=== PATIENT | male | born 1955 | race Two or more races ===

== ENCOUNTER 2016-11-27 10:11 | Inpatient (IN) | payer OTHER ==
[~2016-11-27] VITALS: Ht 167.6 cm; Wt 79.8 kg
[~2016-11-27 10:11] MED LIST: ACET325T53 PO; AMIN887L PO; ASCO500T9 PO; ATOR10TA PO; Bisacodyl RC; Blood Sugar Diagnostic IN; CLOP75TA2 PO; Cadexomer Iodine TP; DEXT50DI8 IV; DOCU-25 PO; GABA300C PO; GLIP5TAB13 PO; HYDR-3326 PO; INSU100V3 SQ; INSU100V7 SQ; LACT1CAP72 PO; LEVO500T15 PO; METO25TA20 PO; MULT-24 PO; SULF1TAB48 PO
--- NOTE | 2016-11-27 10:21 | NUR ---
AAOX3, SENT HERE BY DR MERINO FOR EVAL AND TREATMENT OF RIGHT TOE CELLULITIS. RESP IS EVEN AND UNLABORED WITH NAD NOTED. SKIN IS WARM AND DRY. AWAITING MD FOR EVAL.
[2016-11-27 10:51] LABS: BASOPHILS % (AUTO) 0.6 % (0.0-2.0); EOSINOPHILS # (AUTO) 0.2 /CMM (0.0-0.7); HEMATOCRIT 36 % (39-51); HEMOGLOBIN 11.7 g/dL (13.5-17.5); LYMPHOCYTES # (AUTO) 1.1 /CMM (0.8-4.8); LYMPHOCYTES % (AUTO) 14.6 % (20.0-44.0); MEAN CORPUSCULAR HEMOGLOBIN 30 PG (26.0-33.0); MEAN CORPUSCULAR HGB CONC 33 g/dl (31.0-36.0); MEAN CORPUSCULAR VOLUME 92 fL (80-96); MONOCYTES # (AUTO) 0.6 /CMM (0.1-1.30); NEUTROPHILS # (AUTO) 5.7 /CMM (1.8-8.9); NEUTROPHILS % (AUTO) 74.8 % (43.0-81.0); PLATELET COUNT (AUTO) 254 /CMM (150-450); WHITE BLOOD COUNT (AUTO) 7.6 K/uL (4.3-11.0)
[2016-11-27 11:04] LABS: INR 0.88 (0.87-1.13)
[2016-11-27 11:13] LABS: CALCIUM, SERUM 8.8 mg/dL (8.5-10.1); CREATININE 1.7 mg/dL (0.6-1.3); POTASSIUM 5.7 mmol/L (3.5-5.1)
--- NOTE | 2016-11-27 11:26 | NUR ---
CALLED NURSING SUP. FOR MS BED
--- NOTE | 2016-11-27 13:00 | NUR ---
MS 207-1
--- NOTE | 2016-11-27 13:19 | NUR ---
REPORT GIVEN TO DOE TROTTER FOR CHIO MS 207-1
[2016-11-27 13:45] VITALS: BP 148/74
--- NOTE | 2016-11-27 13:45 | NUR ---
MS RN NOTE ADMITTED THIS PT, DIABETIC FOOT ULCER BY DR. PEARL, AAOX 4, ON RA, DENIES ANY SOB, CHEST PAIN, L AC 20G IV ACCESS, FLUSHES WELL SITE CLEAR. SEE NURSING ASSESSMENT FOR SKIN ISSUES, PHOTOS OF SKIN ISSUES TAKEN AND PLACED IN CHART. [facility] DIET. UNIT ORIENTATION DONE AND USE OF CALL LIGHT, SAFETY MEASURES IN PLACE. WILL CONT TO MONITOR.
[2016-11-27] MEDS ORDERED: HYDROCODONE/APAP 5/325MG 1 EACH TABLET PO PRN (14:00)
[2016-11-27] MEDS ORDERED: MAG HYDROX/AL HYDROX/SIMETH 30 ML UDC PO PRN (14:00)
[2016-11-27] MEDS ORDERED: VANCOMYCIN 1 GM in IV D5W 250 ML IV SCH (14:00)
[2016-11-27] MEDS ORDERED: ONDANSETRON HCL/PF 4 MG/2 ML VIAL IVP PRN (14:00)
[2016-11-27] MEDS ORDERED: ACETAMINOPHEN 325 MG TABLET PO PRN (14:00)
[2016-11-27] MEDS ORDERED: Z GUARD REMEDY 2 OZ OINT TP PRN (14:00)
[2016-11-27] MEDS ORDERED: FEE PK DOSING 1 MIN EA MC ONE (14:03)
[2016-11-27] MEDS ORDERED: ACET325T53 PO (14:37)
[2016-11-27] MEDS ORDERED: ALBU2.5V38 NEB (14:37)
[2016-11-27] MEDS ORDERED: FURO40TA5 PO (14:49)
[2016-11-27] MEDS ORDERED: METO50TA3 PO (14:49)
[2016-11-27] MEDS ORDERED: TRAM50TA2 PO (14:49)
[2016-11-27] MEDS ORDERED: GLIP10TA11 PO (14:49)
[2016-11-27] MEDS ORDERED: ASPI81TA2 PO (14:49)
[2016-11-27] MEDS ORDERED: DOCU-170 PO (14:49)
[2016-11-27] MEDS ORDERED: CLON0.1T PO (14:49)
[2016-11-27] MEDS ORDERED: LISI40TA4 PO (14:49)
[2016-11-27] MEDS ORDERED: NEOM28.43 TP (14:55)
[2016-11-27] MEDS ORDERED: SECONDARY IV SET 1 EA INFUS.SET MC ONE ×2 (15:29→17:10)
[2016-11-27] MEDS ORDERED: DEXTROSE 50%-WATER 50 ML DISP.SYRIN IV PRN (15:30)
[2016-11-27] MEDS ORDERED: IV SET PRIMARY PUMP SET 1 EA INFUS.SET MC ONE ×2 (15:30→15:37)
[2016-11-27] MEDS ORDERED: ALBUTEROL FS 2.5 MG/3 ML VIAL.NEB NEB PRN (15:30)
[2016-11-27] MEDS: VANCOMYCIN 0.75 GM in IV D5W 250 ML IV SCH (15:37)
--- NOTE | 2016-11-27 15:37 | NUR ---
MS RN NOTES STARTED VANCO IV.
[2016-11-27] MEDS: IV NS 0.9% 1,000 ML IV PRN (15:39)
[2016-11-27 16:00] VITALS: BP 143/70
[2016-11-27] MEDS: LISINOPRIL (20MG) 20 MG TABLET PO SCH (16:24)
[2016-11-27] MEDS: CLONIDINE HCL 0.1 MG TABLET PO SCH (16:24)
[2016-11-27] MEDS: METOPROLOL TARTRATE 50 MG TABLET PO SCH (16:25)
[2016-11-27] MEDS: GABAPENTIN 300 MG CAPSULE PO SCH (16:26)
[2016-11-27] MEDS: MORPHINE SULFATE INJ 2 MG/ML DISP.SYRIN IV PRN (16:36)
[2016-11-27] MEDS: PIPERACILLIN /TAZOBACTAM 3.375 G in IV D5W 50 ML IV SCH ×2 (17:20→23:43)
[2016-11-27] MEDS: BLOOD SUGAR DIAGNOSTIC 1 EACH STRIP IN SCH ×2 (17:20→21:47)
--- NOTE | 2016-11-27 17:28 | NUR ---
MS RN NOTES ACCUCHECK DONE BS 246 MG/DL. ADMINISTERED 8 UNITS HUM R PER SS. STARTED ZOSYN IV.
[2016-11-27 17:30] VITALS: BP 143/70
[2016-11-27] MEDS: INSULIN REGULAR, HUMAN 100 UNIT/ML 3 ML VIAL SQ PRN (17:33)
[2016-11-27 18:00] VITALS: BP 143/70
--- NOTE | 2016-11-27 18:48 | NUR ---
MS RN NOTES PATIENT RESTING COMFORTABLY. ALL NEEDS MET. NO OTHER SIGNIFICANT CHANGE IN CONDITION. VSS. CALL LIGHT WITHIN REACH. SAFETY MEASURES IN PLACE. WILL ENDORSE TO NEXT SHIFT FOR CHIO.
--- NOTE | 2016-11-27 19:30 | NUR ---
MS RN NOTES RECEIVED ON BED WATCHING TV PROGRAM,BREATHING REGULAR,NOT IN ANY FORM OF DISTRESS.WITH IVF NS AT 75ML/HR RATE INFUSING WELL,SITE PATENT ON LEFT AC.INSURANCE SALES ASSISTANT AT BEDSIDE DOING ARTERIAL DOPPLER.CALL LIGHT IN REACH,NEEDS ANTICIPATED.
[2016-11-27 19:51] VITALS: BP 114/54
[2016-11-27 20:00] VITALS: BP 114/54
[2016-11-27] MEDS: DOCUSATE SODIUM 100 MG CAPSULE PO SCH (21:39)
[2016-11-27] MEDS: ATORVASTATIN 10 MG TABLET PO SCH (21:39)
--- NOTE | 2016-11-27 21:45 | NUR ---
MS RN NOTES ACCU-CHECK BLOOD SUGAR CHECK 97,NO INSULIN COVERAGE
[2016-11-27] MEDS ORDERED: MAGNESIUM HYDROXIDE 30 ML UDC PO PRN (22:00)
[2016-11-27] MEDS ORDERED: ZOLPIDEM TARTRATE 5 MG TABLET PO PRN (22:00)
--- NOTE | 2016-11-27 22:00 | NUR ---
MS RN NOTES DUE PO MEDS ADMINISTERED
--- NOTE | 2016-11-27 23:52 | NUR ---
MS RN NOTES SOUND ASLEEP,DUE ZOSYN 3.375GM IVPB HUNG
[2016-11-28] MEDS: MORPHINE SULFATE INJ 2 MG/ML DISP.SYRIN IV PRN ×4 (00:19→21:45)
--- NOTE | 2016-11-28 00:19 | NUR ---
MS RN NOTES PAIN MANAGEMENT C/O PAIN 9/10 ON PAIN SCALE VIA RIGHT LOWER LEG,MEDICATED WITH MORPHINE 2MG IVP ORDERED.
--- NOTE | 2016-11-28 03:00 | NUR ---
MS RN NOTES SLEEPING AT THIS TIME
[2016-11-28] MEDS: VANCOMYCIN 0.75 GM in IV D5W 250 ML IV SCH ×2 (03:09→15:06)
[2016-11-28] MEDS: BLOOD SUGAR DIAGNOSTIC 1 EACH STRIP IN SCH ×4 (05:29→21:25)
[2016-11-28] MEDS: PIPERACILLIN /TAZOBACTAM 3.375 G in IV D5W 50 ML IV SCH ×4 (05:29→23:21)
--- NOTE | 2016-11-28 05:36 | NUR ---
MS RN NOTES AWAKE,SITTING ON EDGE OF BED,PEE VIA URINAL.C/O PAIN ON RIGHT LEG.MEDICATED WITH MORPHINE 2MG IVP FOR PAIN SCALE 8/1O.WILL MONITOR FOR RELIEF
--- NOTE | 2016-11-28 05:58 | NUR ---
MS RN NOTES ABLE TO WALK TO THE TOILET,IV SITE REMAINS PATENT,IN PAIN ON AND OFF,MANAGE WITH MORPHINE 2MG IV ORDERED.WILL ENDORSE TO DAY NURSE FOR CHIO,
[2016-11-28 06:33] LABS: EOSINOPHILS % (AUTO) 0.1 % (0.0-6.0); HEMATOCRIT 33 % (39-51); HEMOGLOBIN 11.2 g/dL (13.5-17.5); LYMPHOCYTES # (AUTO) 0.1 /CMM (0.8-4.8); LYMPHOCYTES % (AUTO) 1.3 % (20.0-44.0); MEAN CORPUSCULAR HEMOGLOBIN 31 PG (26.0-33.0); MEAN CORPUSCULAR HGB CONC 34 g/dl (31.0-36.0); MEAN CORPUSCULAR VOLUME 93 fL (80-96); MONOCYTES # (AUTO) 0.3 /CMM (0.1-1.30); MONOCYTES % (AUTO) 4.8 % (2.0-12.0); NEUTROPHILS # (AUTO) 5.3 /CMM (1.8-8.9); NEUTROPHILS % (AUTO) 93.8 % (43.0-81.0); PLATELET COUNT (AUTO) 223 /CMM (150-450); RDW COEFFICIENT OF VARIATION 13.8 (11.5-15.0); RED BLOOD CELL COUNT(AUTO) 3.58 MIL/uL (4.5-6.0); WHITE BLOOD COUNT (AUTO) 5.7 K/uL (4.3-11.0)
[2016-11-28 07:05] LABS: CALCIUM, SERUM 8.4 mg/dL (8.5-10.1); CREATININE 1.6 mg/dL (0.6-1.3); MAGNESIUM 2.4 mg/dL (1.8-2.4); PHOSPHORUS 4.9 mg/dL (2.5-4.9); POTASSIUM 5.9 mmol/L (3.5-5.1)
[2016-11-28 07:51] LABS: BAND % (MANUAL) 1 % (0.0-5.0); EOSINOPHILS % (MANUAL) 1 % (0-4); LYMPHOCYTES % (MANUAL) 23 % (16-48); MONOCYTES % (MANUAL) 4 % (0-11.0); NEUTROPHILS % (MANUAL) 71 (42-76)
[2016-11-28 07:59] VITALS: BP 108/61
--- NOTE | 2016-11-28 08:00 | NUR ---
MS RN NOTES PATIENT IN BED RESTING NO SOB OR ACUTE DISTRESS NOTED. PERIPHERAL IV INTACT PATENT ON RIGHT AC. CALL LIGHT WITHIN REACH. BED IN LOW LOCKED POSITION. WILL CONTINUE TO MONITOR.
[2016-11-28] MEDS: METOPROLOL TARTRATE 50 MG TABLET PO SCH ×2 (08:41→17:06)
[2016-11-28] MEDS: FUROSEMIDE 40 MG TABLET PO SCH (08:41)
[2016-11-28] MEDS: PANTOPRAZOLE 40 MG TABLET.DR PO SCH (08:42)
[2016-11-28] MEDS: ASPIRIN 81 MG TAB.CHEW PO SCH (08:42)
[2016-11-28] MEDS: GABAPENTIN 300 MG CAPSULE PO SCH ×3 (08:42→17:05)
[2016-11-28] MEDS: LISINOPRIL (20MG) 20 MG TABLET PO SCH (08:42)
[2016-11-28] MEDS: glipiZIDE 10 MG TABLET PO SCH (08:42)
[2016-11-28] MEDS: CLONIDINE HCL 0.1 MG TABLET PO SCH ×2 (08:42→17:05)
[2016-11-28] MEDS ORDERED: SODIUM POLYSTYRENE SULFONATE 15 G/60 ML BOTTLE PO ONE (09:00)
[2016-11-28] MEDS: IV NS 0.9% 1,000 ML IV PRN (10:32)
--- NOTE | 2016-11-28 10:35 | NUR ---
WOUND CARE CONSULT CONSULT RECEIVED BY WOUND CARE, RADIOLOGY TEACHER WILL DEFER EVAL AND TREATMENT PLAN TO PODIATRY TEAM AT THIS TIME WITH WOUND CARE ASSIST IF REQUESTED. PATIENT WITH VERÓNICA AT 21 AND AMBULATORY, INDEPENDENT WITH BED MOBILITY. DISCUSSED WITH NURSING STAFF.
[2016-11-28] MEDS: INSULIN REGULAR, HUMAN 100 UNIT/ML 3 ML VIAL SQ PRN ×2 (12:15→17:12)
--- NOTE | 2016-11-28 14:07 | NUR ---
MS RN NOTES PATIENT SEEN BY DR. KENYON DEBRIDEMENT OF RIGHT SECOND TOE PERFORMED PATIENT TOLERATED WELL. WOUND CARE PERFORMED WILL CONTINUE TO MONITOR.
[2016-11-28] MEDS: HYDROGEL DRESSING 90 GM TUBE TP SCH (15:07)
[2016-11-28 16:00] VITALS: BP 149/90
[2016-11-28] MEDS: LACTOBACILLUS RHAMNOSUS GG 1 EACH CAP.SPRINK PO SCH (17:05)
--- NOTE | 2016-11-28 18:25 | NUR ---
MS RN NOTES PATIENT IN BED RESTING NO SOB OR ACUTE DISTRESS NOTED. ALL DUE MEDICATIONS ADMINISTERED. ALL NEEDS MET WILL ENDORSE TO PM SHIFT CHIO.
[2016-11-28 20:00] VITALS: BP 115/57
--- NOTE | 2016-11-28 20:00 | NUR ---
RECEIVED PATIENT ASLEEP, NO DISTRESS, BREATHING IS EVEN AND UNLABORED. NOT IN APPARENT PAIN, LEFT AC PERIPHERAL LINE IS PATENT AND INFUSING WELL, CONTINENT OF BOWEL AND BLADDER, KEPT SAFE AND COMFORTABLE, WILL CONTINUE TO MONITOR.
[2016-11-28] MEDS: DOCUSATE SODIUM 100 MG CAPSULE PO SCH (21:26)
[2016-11-28] MEDS: ATORVASTATIN 10 MG TABLET PO SCH (21:26)
[2016-11-28] MEDS: *INSULIN REGULAR(HUMULIN R)HUM 100 UNIT/ML VIAL SQ PRN (21:39)
[2016-11-28 22:00] VITALS: BP 115/57
[2016-11-29] MEDS: VANCOMYCIN 0.75 GM in IV D5W 250 ML IV SCH ×2 (03:09→15:09)
[2016-11-29] MEDS: PIPERACILLIN /TAZOBACTAM 3.375 G in IV D5W 50 ML IV SCH ×3 (05:24→18:03)
[2016-11-29] MEDS: BLOOD SUGAR DIAGNOSTIC 1 EACH STRIP IN SCH ×4 (06:19→21:31)
[2016-11-29] MEDS: INSULIN REGULAR, HUMAN 100 UNIT/ML 3 ML VIAL SQ PRN (06:22)
--- NOTE | 2016-11-29 06:22 | NUR ---
BG 121 MG/DL, NO INSULIN COVERAGE
--- NOTE | 2016-11-29 06:44 | NUR ---
PATIENT IN BED, ALERT AND AWAKE, NO SOB. NO RESPIRATORY DISTRESS, NO CHANGE OF CONDITION DURING SHIFT, ALL DUE MEDICATIONS GIVEN, KEPT SAFE AND COMFORTABLE, CALL LIGHT WITHIN REACH.
[2016-11-29 06:48] LABS: BASOPHILS % (AUTO) 0.2 % (0.0-2.0); EOSINOPHILS # (AUTO) 0.1 /CMM (0.0-0.7); EOSINOPHILS % (AUTO) 1.2 % (0.0-6.0); HEMATOCRIT 33 % (39-51); HEMOGLOBIN 11.2 g/dL (13.5-17.5); LYMPHOCYTES # (AUTO) 1.2 /CMM (0.8-4.8); LYMPHOCYTES % (AUTO) 16.2 % (20.0-44.0); MEAN CORPUSCULAR HEMOGLOBIN 31 PG (26.0-33.0); MEAN CORPUSCULAR HGB CONC 34 g/dl (31.0-36.0); MEAN CORPUSCULAR VOLUME 92 fL (80-96); MONOCYTES # (AUTO) 0.5 /CMM (0.1-1.30); MONOCYTES % (AUTO) 7.3 % (2.0-12.0); NEUTROPHILS # (AUTO) 5.4 /CMM (1.8-8.9); NEUTROPHILS % (AUTO) 75.1 % (43.0-81.0); PLATELET COUNT (AUTO) 226 /CMM (150-450); RDW COEFFICIENT OF VARIATION 13.4 (11.5-15.0); WHITE BLOOD COUNT (AUTO) 7.1 K/uL (4.3-11.0)
[2016-11-29 07:08] LABS: CALCIUM, SERUM 8.3 mg/dL (8.5-10.1); CREATININE 1.6 mg/dL (0.6-1.3); POTASSIUM 4.9 mmol/L (3.5-5.1)
--- NOTE | 2016-11-29 07:45 | NUR ---
RN OPENING NOTES RECEIVED PATIENT IN BED SLEEPING, AROUSES EASILY. ALERT AND ORIENTED X3. RESPIRATIONS EVEN AND UNLABORED. NO ACUTE DISTRESS NOTED. IV SITE INTACT AND PATENT, INFUSING WELL. BED IN LOWEST POSITION, SIDERAILS UP X2. CALL LIGHT WITHIN REACH. WILL CONTINUE TO MONITOR.
[2016-11-29 08:00] VITALS: BP 169/73
[2016-11-29] MEDS: PANTOPRAZOLE 40 MG TABLET.DR PO SCH (08:55)
[2016-11-29] MEDS: LACTOBACILLUS RHAMNOSUS GG 1 EACH CAP.SPRINK PO SCH ×2 (08:55→17:50)
[2016-11-29] MEDS: GABAPENTIN 300 MG CAPSULE PO SCH ×3 (08:55→17:00)
[2016-11-29] MEDS: METOPROLOL TARTRATE 50 MG TABLET PO SCH ×2 (08:58→17:51)
[2016-11-29] MEDS: ASPIRIN 81 MG TAB.CHEW PO SCH (08:59)
[2016-11-29] MEDS: CLONIDINE HCL 0.1 MG TABLET PO SCH ×2 (08:59→17:52)
[2016-11-29] MEDS: FUROSEMIDE 40 MG TABLET PO SCH (08:59)
[2016-11-29] MEDS: LISINOPRIL (20MG) 20 MG TABLET PO SCH (09:02)
[2016-11-29] MEDS: glipiZIDE 10 MG TABLET PO SCH (09:08)
[2016-11-29] MEDS: MORPHINE SULFATE INJ 2 MG/ML DISP.SYRIN IV PRN ×2 (09:16→15:23)
[2016-11-29] MEDS: HYDROGEL DRESSING 90 GM TUBE TP SCH (09:26)
[2016-11-29] MEDS: MUPIROCIN OINT 2% 22 GM TUBE SCH ×2 (09:27→21:45)
[2016-11-29] MEDS: IV NS 0.9% 1,000 ML IV PRN ×2 (09:35→21:44)
[2016-11-29 16:00] VITALS: BP 180/86
--- NOTE | 2016-11-29 18:23 | NUR ---
RN CLOSING NOTES PATIENT ON BED RESTING, AWAKE AND ALERT. NO ACUTE DISTRESS NOTED. NO CHANGE OF CONDITION DURING THE SHIFT. IV SITE INTACT AND PATENT, INFUSING FLUIDS WELL. ALL NEEDS ATTENDED AND PROVIDED. KEPT PATIENT SAFE AND COMFORTABLE. CALL LIGHT WITHIN REACH. WILL ENDORSE TO PAINTER SET RN FOR CONTINUITY OF CARE.
--- NOTE | 2016-11-29 19:30 | NUR ---
MSRN ASLEEP, EASILY AWAKENED FOR VITAL SIGNS. BP WAS 96/55. ASYMPTOMATIC, DENIES ANY DISCOMFORTS. WILL CONTINUE TO MONITOR.
[2016-11-29 20:00] VITALS: BP 96/55
[2016-11-29] MEDS: DOCUSATE SODIUM 100 MG CAPSULE PO SCH (21:31)
[2016-11-29] MEDS: ATORVASTATIN 10 MG TABLET PO SCH (21:31)
--- NOTE | 2016-11-29 21:35 | NUR ---
MSRN STILL SLEEPING EASILY AROUSABLE TO NAME. DUE MEDS ADMINISTERED. PRESENT IVF INFUSING WELL. ISOLATION PRECAUTION FOR MRSA NARES OBSERVED.
[2016-11-29] MEDS: *INSULIN REGULAR(HUMULIN R)HUM 100 UNIT/ML VIAL SQ PRN (21:44)
--- NOTE | 2016-11-29 21:59 | NUR ---
MSRN AGREED ACCUCHECK WAS 247, COVERED WITH 4 UNITS OF REGULAR INSULIN SQ. REFUSED SNACKS,OFFERED TWICE, DECLINED. ALL NEEDS ATTENDED. RECHECKED BLOOD PRESSURE WAS 157/77 THIS TIME.
[2016-11-29 23:08] VITALS: BP 155/77
[2016-11-30] MEDS: VANCOMYCIN 0.75 GM in IV D5W 250 ML IV SCH (03:29)
[2016-11-30] MEDS: MORPHINE SULFATE INJ 2 MG/ML DISP.SYRIN IV PRN ×3 (05:01→15:32)
--- NOTE | 2016-11-30 05:04 | NUR ---
DELFINA JOSHI;IZLORNE RIGHT TOE PAIN, MORPHINE 2MG IVP ADMINISTERED ORDERED. KEPT COMFORTABLE. BEDREST FOR NOW INSTRUCTED.
[2016-11-30] MEDS: BLOOD SUGAR DIAGNOSTIC 1 EACH STRIP IN SCH ×4 (06:10→21:13)
[2016-11-30] MEDS: INSULIN REGULAR, HUMAN 100 UNIT/ML 3 ML VIAL SQ PRN ×2 (06:14→12:46)
[2016-11-30 06:46] LABS: BASOPHILS % (AUTO) 0.2 % (0.0-2.0); EOSINOPHILS # (AUTO) 0.1 /CMM (0.0-0.7); EOSINOPHILS % (AUTO) 1.3 % (0.0-6.0); HEMATOCRIT 36 % (39-51); HEMOGLOBIN 12.2 g/dL (13.5-17.5); LYMPHOCYTES # (AUTO) 1.1 /CMM (0.8-4.8); MEAN CORPUSCULAR HEMOGLOBIN 31 PG (26.0-33.0); MEAN CORPUSCULAR HGB CONC 34 g/dl (31.0-36.0); MEAN CORPUSCULAR VOLUME 92 fL (80-96); MONOCYTES # (AUTO) 0.6 /CMM (0.1-1.30); MONOCYTES % (AUTO) 8.7 % (2.0-12.0); NEUTROPHILS # (AUTO) 5.1 /CMM (1.8-8.9); NEUTROPHILS % (AUTO) 73.8 % (43.0-81.0); PLATELET COUNT (AUTO) 230 /CMM (150-450); RED BLOOD CELL COUNT(AUTO) 3.91 MIL/uL (4.5-6.0); WHITE BLOOD COUNT (AUTO) 6.9 K/uL (4.3-11.0)
[2016-11-30 06:55] LABS: CALCIUM, SERUM 8.7 mg/dL (8.5-10.1); CREATININE 1.4 mg/dL (0.6-1.3)
[2016-11-30] MEDS: PANTOPRAZOLE 40 MG TABLET.DR PO SCH (07:48)
--- NOTE | 2016-11-30 07:53 | NUR ---
RN OPENING NOTES RECEIVED PATIENT ON BED RESTING, AWAKE, ALERT AND ORIENTED X3. RESPIRATIONS EVEN AND UNLABORED. NO ACUTE DISTRESS NOTED. IV SITE INTACT AND PATENT, INFUSING WELL. BED IN LOWEST POSITION, SIDERAILS UP X2. CALL LIGHT WITHIN REACH. WILL CONTINUE TO MONITOR.
[2016-11-30 08:00] VITALS: BP 187/87
[2016-11-30] MEDS: LACTOBACILLUS RHAMNOSUS GG 1 EACH CAP.SPRINK PO SCH ×2 (08:28→16:45)
[2016-11-30] MEDS: FUROSEMIDE 40 MG TABLET PO SCH (08:29)
[2016-11-30] MEDS: LISINOPRIL (20MG) 20 MG TABLET PO SCH (08:31)
[2016-11-30] MEDS: glipiZIDE 10 MG TABLET PO SCH (08:32)
[2016-11-30] MEDS: ASPIRIN 81 MG TAB.CHEW PO SCH (08:32)
[2016-11-30] MEDS: METOPROLOL TARTRATE 50 MG TABLET PO SCH ×2 (08:33→16:46)
[2016-11-30] MEDS: CLONIDINE HCL 0.1 MG TABLET PO SCH ×2 (08:34→16:48)
[2016-11-30] MEDS: HYDROGEL DRESSING 90 GM TUBE TP SCH (08:35)
[2016-11-30] MEDS: MUPIROCIN OINT 2% 22 GM TUBE SCH ×2 (08:36→21:10)
[2016-11-30] MEDS: GABAPENTIN 300 MG CAPSULE PO SCH ×3 (08:57→16:53)
--- NOTE | 2016-11-30 10:00 | NUR ---
SEEN BY DR KENYON WITH NO NEW ORDER.DR KENYON STATED THAT NO AMPUTATION NEEDED TO BE DONE AND THAT HE WAS ABLE TO TALK TO DR PEARL TODAY WELL.
--- NOTE | 2016-11-30 11:50 | NUR ---
RECEIVED A CALL FROM MARY KAPLAN FROM [facility] MICROBIOLOGY DEPARTMENT REPORTING MRSA AND STREP GROUP B ON RIGHT SECOND TOE. WILL NOTIFY
[2016-11-30] MEDS: IV NS 0.9% 1,000 ML IV PRN (12:57)
[2016-11-30 16:00] VITALS: BP 172/80
--- NOTE | 2016-11-30 17:19 | NUR ---
BS 208 mg/dl. PATIENT REFUSED INSULIN.
--- NOTE | 2016-11-30 18:18 | NUR ---
RN CLOSING NOTES PATIENT ON BED WATCHING TV. RESPIRATIONS EVEN AND UNLABORED. NO ACUTE DISTRESS NOTED. ALL NEEDS ATTENDED AND PROVIDED. KEPT PATIENT SAFE. BED IN LOWEST POSITION, CALL LIGHT IN REACH. WILL ENDORSE TO STUDENT RN FOR CONTINUITY OF CARE.
[2016-11-30 20:00] VITALS: BP 153/78
--- NOTE | 2016-11-30 20:00 | NUR ---
PATIENT IS ALERT AND ORIENTED X4, CALM, WATCHING TV, NO SOB, NO RESPIRATORY DISTRESS, ON ROOM AIR, 02 SAT 99%, RIGHT TOE PAIN OF 3/10, TOLERABLE PER PATIENT, WILL ASK FOR PAIN MEDICATION NEEDED, LEFT AC #20 PATENT AND INFUSING WELL, ABLE TO USE URINAL, ABLE TO AMBULATE WITH CANE, KEPT SAFE AND COMFORTABLE, CALL LIGHT WITHIN REACH.
[2016-11-30] MEDS: ATORVASTATIN 10 MG TABLET PO SCH (21:11)
[2016-11-30] MEDS: DOCUSATE SODIUM 100 MG CAPSULE PO SCH (21:11)
[2016-11-30] MEDS: SULFAMETH/TRIMETH 800/160 MG 1 UDTAB TABLET PO SCH (21:11)
[2016-11-30] MEDS: *INSULIN REGULAR(HUMULIN R)HUM 100 UNIT/ML VIAL SQ PRN (21:22)
--- NOTE | 2016-11-30 21:26 | NUR ---
BG 133 MG/DL, REFUSED INSULIN 2 UNITS, PER PATIENT "NO MORE INSULIN, MY BODY IS GETTING USED TO IT. I READ ABOUT IT." EDUCATED PATIENT ON RISKS AND BENEFITS OF INSULIN, PATIENT STILL REFUSED.
[2016-12-01] MEDS: IV NS 0.9% 1,000 ML IV PRN (01:22)
[2016-12-01] MEDS: MORPHINE SULFATE INJ 2 MG/ML DISP.SYRIN IV PRN ×3 (01:27→20:58)
[2016-12-01 06:20] LABS: BASOPHILS % (AUTO) 0.4 % (0.0-2.0); EOSINOPHILS # (AUTO) 0.1 /CMM (0.0-0.7); EOSINOPHILS % (AUTO) 1.6 % (0.0-6.0); HEMATOCRIT 34 % (39-51); HEMOGLOBIN 11.3 g/dL (13.5-17.5); LYMPHOCYTES # (AUTO) 1.2 /CMM (0.8-4.8); LYMPHOCYTES % (AUTO) 17.6 % (20.0-44.0); MEAN CORPUSCULAR HEMOGLOBIN 31 PG (26.0-33.0); MEAN CORPUSCULAR HGB CONC 33 g/dl (31.0-36.0); MEAN CORPUSCULAR VOLUME 92 fL (80-96); MONOCYTES # (AUTO) 0.5 /CMM (0.1-1.30); MONOCYTES % (AUTO) 7.4 % (2.0-12.0); PLATELET COUNT (AUTO) 232 /CMM (150-450); RDW COEFFICIENT OF VARIATION 13.7 (11.5-15.0); RED BLOOD CELL COUNT(AUTO) 3.68 MIL/uL (4.5-6.0); WHITE BLOOD COUNT (AUTO) 6.8 K/uL (4.3-11.0)
[2016-12-01] MEDS: BLOOD SUGAR DIAGNOSTIC 1 EACH STRIP IN SCH ×4 (06:39→20:58)
[2016-12-01 06:40] LABS: CALCIUM, SERUM 8.5 mg/dL (8.5-10.1); POTASSIUM 4.9 mmol/L (3.5-5.1)
--- NOTE | 2016-12-01 06:42 | NUR ---
BG 116 MG/DL, NO INSULIN COVERAGE
--- NOTE | 2016-12-01 07:02 | NUR ---
PATIENT IN BED, ALERT AND AWAKE, NO SOB, NO COMPLAIN OF PAIN, NO ADVERSE CHANGE OF CONDITION DURING SHIFT, ALL DUE MEDICATIONS GIVEN, CALL LIGHT WITHIN REACH.
--- NOTE | 2016-12-01 07:49 | NUR ---
MS RN NOTES PATIENT IS A/OX4. NO S/S OF DISTRESS OR SOB NOTED. IV IS PATENT AND INTACT. PATIENT COMPLAINING OF LEFT FOOT PAIN. WILL MANAGE PAIN USING PHARMACOLOGICAL AND NONPHARMACOLOGICAL INTERVENTIONS. CALL LIGHT IS WITHIN REACH. BED IS IN LOWEST, LOCKED POSITION. WILL CONTINUE TO MONITOR THROUGHOUT SHIFT.
[2016-12-01 08:00] VITALS: BP 141/76
[2016-12-01] MEDS: glipiZIDE 10 MG TABLET PO SCH (08:52)
[2016-12-01] MEDS: GABAPENTIN 300 MG CAPSULE PO SCH ×3 (08:52→16:14)
[2016-12-01] MEDS: PANTOPRAZOLE 40 MG TABLET.DR PO SCH (08:52)
[2016-12-01] MEDS: LACTOBACILLUS RHAMNOSUS GG 1 EACH CAP.SPRINK PO SCH ×2 (08:52→16:13)
[2016-12-01] MEDS: LISINOPRIL (20MG) 20 MG TABLET PO SCH (08:53)
[2016-12-01] MEDS: METOPROLOL TARTRATE 50 MG TABLET PO SCH ×2 (08:55→16:14)
[2016-12-01] MEDS: SULFAMETH/TRIMETH 800/160 MG 1 UDTAB TABLET PO SCH ×2 (08:56→20:58)
[2016-12-01] MEDS: FUROSEMIDE 40 MG TABLET PO SCH (08:56)
[2016-12-01] MEDS: ASPIRIN 81 MG TAB.CHEW PO SCH (08:56)
[2016-12-01] MEDS: CLONIDINE HCL 0.1 MG TABLET PO SCH ×2 (08:56→16:13)
[2016-12-01] MEDS: HYDROGEL DRESSING 90 GM TUBE TP SCH (09:00)
[2016-12-01] MEDS: MUPIROCIN OINT 2% 22 GM TUBE SCH ×2 (09:00→20:58)
[2016-12-01] MEDS: INSULIN REGULAR, HUMAN 100 UNIT/ML 3 ML VIAL SQ PRN (12:47)
[2016-12-01 15:51] VITALS: BP 138/73
--- NOTE | 2016-12-01 19:10 | NUR ---
MS RN NOTES PATIENT IS A/OX4. NO S/S OF DISTRESS NOTED. NO SOB NOTED. CALL LIGHT IS WITHIN REACH. IV IS PATENT AND INTACT. ALL PATIENT NEEDS WERE MET THROUGHOUT SHIFT. BED IS IN LOWEST, LOCKED POSITION. WILL ENDORSE CARE TO PM SHIFT.
[2016-12-01 20:00] VITALS: BP 123/69
[2016-12-01] MEDS: DOCUSATE SODIUM 100 MG CAPSULE PO SCH (20:58)
[2016-12-01] MEDS: ATORVASTATIN 10 MG TABLET PO SCH (20:59)
[2016-12-01 22:00] VITALS: BP 123/69
[2016-12-02] MEDS: PANTOPRAZOLE 40 MG TABLET.DR PO SCH (06:27)
[2016-12-02] MEDS: BLOOD SUGAR DIAGNOSTIC 1 EACH STRIP IN SCH ×2 (06:28→12:03)
[2016-12-02] MEDS: MORPHINE SULFATE INJ 2 MG/ML DISP.SYRIN IV PRN ×2 (06:52→12:03)
[2016-12-02] MEDS: IV NS 0.9% 1,000 ML IV PRN (06:57)
--- NOTE | 2016-12-02 07:27 | NUR ---
AM RN NOTE Received patient awake, A/O X4. Verbally responsive. No acute distress noted. Resp even and non-labored. IV site intact and patent. Bed in low locked position. Will continue to monitor.
--- NOTE | 2016-12-02 07:28 | NUR ---
MS RN NOTE PATIENT STABLE. BLOOD SUGAR 98. ALL NEEDS MET AND ATTENDED TO. WILL ENDORSE TO DAY SHIFT FOR CHIO.
[2016-12-02 07:34] LABS: CALCIUM, SERUM 8.6 mg/dL (8.5-10.1); CREATININE 1.4 mg/dL (0.6-1.3); POTASSIUM 4.8 mmol/L (3.5-5.1)
[2016-12-02 08:00] VITALS: BP 147/67
[2016-12-02] MEDS: SULFAMETH/TRIMETH 800/160 MG 1 UDTAB TABLET PO SCH (08:22)
[2016-12-02] MEDS: glipiZIDE 10 MG TABLET PO SCH (08:22)
[2016-12-02] MEDS: ASPIRIN 81 MG TAB.CHEW PO SCH (08:22)
[2016-12-02] MEDS: FUROSEMIDE 40 MG TABLET PO SCH (08:23)
[2016-12-02] MEDS: GABAPENTIN 300 MG CAPSULE PO SCH ×3 (08:23→12:06)
[2016-12-02] MEDS: LACTOBACILLUS RHAMNOSUS GG 1 EACH CAP.SPRINK PO SCH (08:23)
[2016-12-02] MEDS: LISINOPRIL (20MG) 20 MG TABLET PO SCH (08:23)
[2016-12-02 08:24] VITALS: BP 147/67
[2016-12-02] MEDS: METOPROLOL TARTRATE 50 MG TABLET PO SCH (08:24)
[2016-12-02] MEDS: CLONIDINE HCL 0.1 MG TABLET PO SCH (08:24)
[2016-12-02] MEDS: MUPIROCIN OINT 2% 22 GM TUBE SCH (08:28)
[2016-12-02] MEDS: HYDROGEL DRESSING 90 GM TUBE TP SCH (08:28)
--- NOTE | 2016-12-02 10:22 | NUR ---
Social service consult requested by Dr. Luevano for Section 8 housing information. Pt. is a 60 year old male who was admitted to [facility] for Diabetic Foot Ulcer. SW met with pt. bedside. Pt. is alert and oriented x4. Pt. resides at [facility]. SW gave pt. requested Section 8 brochures for [facility] Public Housing and brochure for Housing Choice Voucher Program. SW also gave pt. list o of [facility] offices in [place]. Pt. was appreciative to receive information. Pt. also asked SW who he can call in regards to the executive secretary social welfare at [facility] is not assisting him with discharge planning. SW informed pt. he can contact the [employer] whose information is listed at his facility. Pt. informed SW he knows where the [employer] phone number is located at his facility and will contact them. No other social service needs are requested at this time and executive secretary social welfare to re-assess if needed.
--- NOTE | 2016-12-02 12:07 | NUR ---
AM RN NOTE Pt awake, A/O X4, BS 134mg/dl refused 2 units of insulin and Neurontin stated "I don't take insulin".
--- NOTE | 2016-12-02 13:15 | NUR ---
AM RN NOTE Discharge order given by Dr. Luevano to [facility]. Pt made aware, discharge instructions on medications, F/U appt and teaching given and patient verbalize understanding. Called [facility], spoke with Yulia RN report given on pt. Belongings endorsed and signed. Will continue to monitor. Call light with in reach.
--- NOTE | 2016-12-02 16:00 | NUR ---
AM RN NOTE Patient awake, A/O X4. Verbally responsive, no acute distress noted. Report given to EMT's. V/S stable taken by EMT's. HL and ID band removed. Pt discharged/ left unit at this time as accompanied by 2 EMT's via [facility] with all his belongings.
== END 2016-12-02 16:00 | DRG 320 ==
LOC: ER 10:13 → MEDSG2 13:19
PROVIDERS: ADMIT Family Medicine; ATTEND Family Medicine
PROC: 0QBQ0ZZ Excision of Right Toe Phalanx, Open Approach (ICD-10-PCS; principal; 2016-11-28)
DX: E11.69 Type 2 diabetes mellitus with other specified complication (principal); M86.8X7 Other osteomyelitis, ankle and foot; N17.0 Acute kidney failure with tubular necrosis; E11.621 Type 2 diabetes mellitus with foot ulcer; I13.0 Hypertensive heart and chronic kidney disease with heart failure and stage 1 through stage 4 chronic kidney disease, or unspecified chronic kidney disease; I50.32 Chronic diastolic (congestive) heart failure; E11.22 Type 2 diabetes mellitus with diabetic chronic kidney disease; E11.42 Type 2 diabetes mellitus with diabetic polyneuropathy; E11.40 Type 2 diabetes mellitus with diabetic neuropathy, unspecified; E87.5 Hyperkalemia; E78.5 Hyperlipidemia, unspecified; I25.10 Atherosclerotic heart disease of native coronary artery without angina pectoris; N18.9 Chronic kidney disease, unspecified; Z86.73 Personal history of transient ischemic attack (TIA), and cerebral infarction without residual deficits; Z95.1 Presence of aortocoronary bypass graft; Z87.891 Personal history of nicotine dependence; E66.9 Obesity, unspecified; E11.51 Type 2 diabetes mellitus with diabetic peripheral angiopathy without gangrene; Z68.28 Body mass index [BMI] 28.0-28.9, adult; I77.1 Stricture of artery; L97.514 Non-pressure chronic ulcer of other part of right foot with necrosis of bone; Z89.422 Acquired absence of other left toe(s); I70.292 Other atherosclerosis of native arteries of extremities, left leg; M20.42 Other hammer toe(s) (acquired), left foot; M20.41 Other hammer toe(s) (acquired), right foot; I70.203 Unspecified atherosclerosis of native arteries of extremities, bilateral legs; Z89.411 Acquired absence of right great toe; I25.2 Old myocardial infarction; Z98.62 Peripheral vascular angioplasty status; Z82.49 Family history of ischemic heart disease and other diseases of the circulatory system; Z83.3 Family history of diabetes mellitus; Z82.3 Family history of stroke
CPT/HCPCS: 36415; 71010-TC; 73660-TC; 80048-TC; 80202-TC; 82962-TC; 83735-TC; 84100-TC; 85025-TC; 85730-TC; 87070-TC; 87081-TC; A4606; A6248; A6402; A6403; J1815; J2270; J2543; J3370; J7030; J7060; Z7610

== ENCOUNTER 2016-12-19 14:09 | Inpatient (IN) | payer OTHER ==
[~2016-12-19] VITALS: Ht 167.6 cm; Wt 70.8 kg
[2016-12-19] VITALS (18 sets, daily range): BP systolic 64–131; BP diastolic 44–73
[~2016-12-19 14:09] MED LIST changes: +ALBU2.5V38 NEB; -AMIN887L PO; -ASCO500T9 PO; +ASPI81TA2 PO; -Bisacodyl RC; +CLON0.1T PO; -CLOP75TA2 PO; -Cadexomer Iodine TP; -DEXT50DI8 IV; +DOCU-170 PO; -DOCU-25 PO; +FURO40TA5 PO; +GLIP10TA11 PO; -GLIP5TAB13 PO; -HYDR-3326 PO; -INSU100V3 SQ; -INSU100V7 SQ; -LACT1CAP72 PO; -LEVO500T15 PO; +LISI40TA4 PO; -METO25TA20 PO; +METO50TA3 PO; -MULT-24 PO; +NEOM28.43 TP; -SULF1TAB48 PO; +TRAM50TA2 PO
--- NOTE | 2016-12-19 14:09 | NUR ---
SENT BY DR GARCIA PODIATRY FOR ADMISSION LEFT FOOT DIABETIC ULCER. NAD NOTED. PT AAO X4, VSS. RR EVEN AND UNLABORED. DR DYSON AT BEDSIDE FOR EVAL.
--- NOTE | 2016-12-19 14:48 | NUR ---
CALLED NURSING ANIMAL CARE TAKER FOR TELE BED
[2016-12-19] MEDS ORDERED: HYDROCODONE/APAP 5/325MG 1 EACH TABLET ONE (14:54)
[2016-12-19] MEDS ORDERED: MORPHINE SULFATE INJ 4 MG/ML DISP.SYRIN ONE (14:59)
[2016-12-19 15:00] LABS: BASOPHILS # (AUTO) 0.1 /CMM (0.0-0.2); BASOPHILS % (AUTO) 0.8 % (0.0-2.0); EOSINOPHILS # (AUTO) 0.1 /CMM (0.0-0.7); EOSINOPHILS % (AUTO) 0.5 % (0.0-6.0); HEMATOCRIT 39 % (39-51); HEMOGLOBIN 12.7 g/dL (13.5-17.5); LYMPHOCYTES # (AUTO) 1.3 /CMM (0.8-4.8); LYMPHOCYTES % (AUTO) 11.6 % (20.0-44.0); MEAN CORPUSCULAR HEMOGLOBIN 30 PG (26.0-33.0); MEAN CORPUSCULAR HGB CONC 33 g/dl (31.0-36.0); MEAN CORPUSCULAR VOLUME 93 fL (80-96); MONOCYTES # (AUTO) 0.7 /CMM (0.1-1.30); MONOCYTES % (AUTO) 6.2 % (2.0-12.0); NEUTROPHILS # (AUTO) 8.7 /CMM (1.8-8.9); NEUTROPHILS % (AUTO) 80.9 % (43.0-81.0); PLATELET COUNT (AUTO) 264 /CMM (150-450); RED BLOOD CELL COUNT(AUTO) 4.18 MIL/uL (4.5-6.0); WHITE BLOOD COUNT (AUTO) 10.9 K/uL (4.3-11.0)
[2016-12-19] MEDS ORDERED: HYDROCODONE/APAP 5/325MG 1 EACH TABLET PO ONE (15:00)
[2016-12-19] MEDS ORDERED: MORPHINE SULFATE INJ 4 MG/ML DISP.SYRIN IV ONE (15:00)
[2016-12-19 15:19] LABS: CALCIUM, SERUM 9.2 mg/dL (8.5-10.1); CREATININE 4.5 mg/dL (0.6-1.3)
[2016-12-19 15:25] LABS: POTASSIUM 8.2 mmol/L (3.5-5.1)
[2016-12-19] MEDS ORDERED: ALBUTEROL FS 2.5 MG/0.5 ML VIAL.NEB ONE ×2 (15:29→15:31)
[2016-12-19] MEDS ORDERED: DEXTROSE 50%-WATER 50 ML DISP.SYRIN IVP ONE (15:30)
[2016-12-19] MEDS ORDERED: SODIUM POLYSTYRENE SULFONATE 15 G/60 ML BOTTLE PO ONE ×2 (15:30→16:00)
[2016-12-19] MEDS ORDERED: SODIUM BICARBONATE SYR 50 MEQ/50 ML DISP.SYRIN IV ONE (15:30)
[2016-12-19] MEDS ORDERED: INSULIN REGULAR, HUMAN 100 UNIT/ML 10 ML VIAL IV ONE (15:30)
[2016-12-19] MEDS ORDERED: ALBUTEROL FS 2.5 MG/0.5 ML VIAL.NEB NEB ONE (15:30)
[2016-12-19] MEDS ORDERED: CALCIUM CHLORIDE 1,000 MG/10 ML DISP.SYRIN IV ONE (15:30)
[2016-12-19] MEDS ORDERED: INSULIN REGULAR, HUMAN 100 UNIT/ML 10 ML VIAL ONE (15:32)
[2016-12-19] MEDS ORDERED: DEXTROSE 50%-WATER 50 ML DISP.SYRIN ONE (15:32)
[2016-12-19] MEDS ORDERED: SODIUM BICARBONATE SYR 50 MEQ/50 ML DISP.SYRIN ONE (15:32)
[2016-12-19] MEDS ORDERED: SODIUM POLYSTYRENE SULFONATE 15 G/60 ML BOTTLE ONE (15:32)
[2016-12-19] MEDS ORDERED: CALCIUM CHLORIDE 1,000 MG/10 ML DISP.SYRIN ONE (15:32)
[2016-12-19] MEDS ORDERED: ACETAMINOPHEN 325 MG TABLET PO PRN ×2 (16:00)
[2016-12-19] MEDS ORDERED: DEXTROSE 50%-WATER 50 ML DISP.SYRIN IV PRN (16:00)
[2016-12-19] MEDS ORDERED: HYDROCODONE/APAP 5/325MG 1 EACH TABLET PO PRN (16:00)
[2016-12-19] MEDS ORDERED: ONDANSETRON HCL/PF 4 MG/2 ML VIAL IVP PRN (16:00)
[2016-12-19] MEDS ORDERED: Z GUARD REMEDY 2 OZ OINT TP PRN (16:00)
[2016-12-19] MEDS ORDERED: TRAMADOL HCL 50 MG TABLET PO PRN (16:00)
[2016-12-19] MEDS ORDERED: ZOLPIDEM TARTRATE 5 MG TABLET PO PRN (16:00)
[2016-12-19] MEDS ORDERED: ALBUTEROL FS 2.5 MG/3 ML VIAL.NEB NEB PRN (16:00)
[2016-12-19] MEDS ORDERED: VANCOMYCIN 1 GM in IV D5W 250 ML IV SCH (16:00)
--- NOTE | 2016-12-19 16:02 | NUR ---
CALLED NURSING BOX SEALING MACHINE FEEDER TO UPGRADE TO ICU
[2016-12-19] MEDS ORDERED: FUROSEMIDE 40 MG/4 ML VIAL IV ONE (16:30)
[2016-12-19] MEDS ORDERED: IV NS 0.9% 500 ML BAG IV ONE (16:30)
[2016-12-19 16:36] LABS: CALCIUM, SERUM 9.9 mg/dL (8.5-10.1); CREATININE 4.1 mg/dL (0.6-1.3)
[2016-12-19 16:47] LABS: POTASSIUM 7.5 mmol/L (3.5-5.1)
--- NOTE | 2016-12-19 17:00 | NUR ---
CONSENTS SIGNED BY PT FOR CENTRAL LINE
[2016-12-19] MEDS ORDERED: IV SET PRIMARY 1 EA INFUS.SET MC ONE (17:15)
[2016-12-19] MEDS ORDERED: FUROSEMIDE 40 MG/4 ML VIAL ONE (17:15)
[2016-12-19] MEDS ORDERED: IV NS 0.9% 500 ML IV ONE (17:15)
[2016-12-19] MEDS ORDERED: LIDOCAINE HCL/PF 1% 30 ML SDV ONE (17:21)
[2016-12-19] MEDS: BLOOD SUGAR DIAGNOSTIC 1 EACH STRIP IN SCH ×2 (17:30→21:20)
--- NOTE | 2016-12-19 17:46 | NUR ---
CENTRAL LINE PLACED BY DR DYSON
--- NOTE | 2016-12-19 17:47 | NUR ---
ICU 259
--- NOTE | 2016-12-19 17:58 | NUR ---
REPORT GIVEN TO CHIQUITA CONWAY RN FOR CONTINUITY OF CARE.
--- NOTE | 2016-12-19 18:45 | NUR ---
TRAFFIC MAINTENANCE SUPERVISOR PT RECEIVED FROM ER BY DALE WITH MONITOR. PT WAS ADMITTED INTO ICU FOR HYPERKALEMIA AND ACUTE RENAL FAILURE. PT AWAKE AND ALERT AND MOVING ALL EXTREMITIES. NERI LOWER EXT WITH WOUNDS. DRESSING OVER RIGHT SULTANA INTACT.
[2016-12-19] MEDS ORDERED: FEE PK DOSING 1 MIN EA MC ONE (18:57)
[2016-12-19] MEDS ORDERED: VANCOMYCIN 500 MG in IV D5W 100 ML IV PRN (19:00)
[2016-12-19] MEDS: HEPARIN SODIUM, PORCINE 1000 UNIT/1 ML VIAL IV STA ×2 (19:49→20:08)
[2016-12-19] MEDS ORDERED: MORPHINE SULFATE INJ 2 MG/ML DISP.SYRIN IV PRN (20:00)
--- NOTE | 2016-12-19 20:00 | NUR ---
received pt from day shift, a/o x4, follows commands, SR, RA sat well, lungs clear, no edema, tolerates diet, urinates in urinal, necrotic wounds and amputated toes noted on the feet, pictures taken, v/s stable, no pain, pt turns and repositions by himself.
[2016-12-19] MEDS: MORPHINE SULFATE INJ 4 MG/ML DISP.SYRIN IV PRN (20:03)
[2016-12-19] MEDS: VANCOMYCIN 1 GM in IV D5W 250 ML IV ONE ×2 (20:09→22:31)
[2016-12-19] MEDS ORDERED: IV SET PRIMARY PUMP SET 1 EA INFUS.SET MC ONE ×2 (20:09→22:24)
[2016-12-19] MEDS: METOPROLOL TARTRATE 50 MG TABLET PO SCH (20:15)
[2016-12-19] MEDS: GABAPENTIN 300 MG CAPSULE PO SCH (20:15)
[2016-12-19] MEDS: CLONIDINE HCL 0.1 MG TABLET PO SCH (20:16)
--- NOTE | 2016-12-19 20:30 | NUR ---
Dr Marcy Tavares at the bedside inserting HD cath pt c/o pain morphine 4mg ivp given
--- NOTE | 2016-12-19 20:58 | NUR ---
HD cath inserted, pt is getting emergency HD.
[2016-12-19] MEDS: DOCUSATE SODIUM 100 MG CAPSULE PO SCH (21:22)
[2016-12-19] MEDS: ATORVASTATIN 10 MG TABLET PO SCH (21:22)
--- NOTE | 2016-12-19 22:00 | NUR ---
pt got dialyzed, only cleaning of the blood, v/s stable, no pain.
--- NOTE | 2016-12-19 22:23 | NUR ---
troponin 0.523, TRANSCRIPT EVALUATOR almond paste mixer notified.
[2016-12-19] MEDS: PIPERACILLIN /TAZOBACTAM 2.25 G in IV D5W 50 ML IV SCH (22:30)
[2016-12-20] VITALS (78 sets, daily range): BP systolic 71–155; BP diastolic 30–80
--- NOTE | 2016-12-20 00:21 | NUR ---
pt is resting in the bed, v/s stable, no pain.
[2016-12-20] MEDS ORDERED: IV NS 0.9% 500 ML IV ONE (04:07)
--- NOTE | 2016-12-20 04:07 | NUR ---
pt is resting in the bed, no acute distress overnight, v/s stable, no pain, pt cleaned and changed.
[2016-12-20] MEDS: PIPERACILLIN /TAZOBACTAM 2.25 G in IV D5W 50 ML IV SCH ×3 (04:13→21:36)
[2016-12-20] MEDS: MORPHINE SULFATE INJ 4 MG/ML DISP.SYRIN IV PRN ×3 (04:13→21:28)
[2016-12-20 04:42] LABS: BASOPHILS % (AUTO) 0.5 % (0.0-2.0); EOSINOPHILS % (AUTO) 0.6 % (0.0-6.0); HEMATOCRIT 31 % (39-51); HEMOGLOBIN 10.3 g/dL (13.5-17.5); LYMPHOCYTES # (AUTO) 1.3 /CMM (0.8-4.8); LYMPHOCYTES % (AUTO) 19.8 % (20.0-44.0); MEAN CORPUSCULAR HEMOGLOBIN 31 PG (26.0-33.0); MEAN CORPUSCULAR HGB CONC 34 g/dl (31.0-36.0); MEAN CORPUSCULAR VOLUME 92 fL (80-96); MONOCYTES # (AUTO) 0.7 /CMM (0.1-1.30); MONOCYTES % (AUTO) 10.2 % (2.0-12.0); NEUTROPHILS # (AUTO) 4.5 /CMM (1.8-8.9); NEUTROPHILS % (AUTO) 68.9 % (43.0-81.0); PLATELET COUNT (AUTO) 176 /CMM (150-450); RDW COEFFICIENT OF VARIATION 13.7 (11.5-15.0); RED BLOOD CELL COUNT(AUTO) 3.34 MIL/uL (4.5-6.0); WHITE BLOOD COUNT (AUTO) 6.5 K/uL (4.3-11.0)
[2016-12-20 04:52] LABS: THYROID STIMULATING HORMONE 0.926 uIU/mL (0.358-3.74)
[2016-12-20 05:05] LABS: CALCIUM, SERUM 8.2 mg/dL (8.5-10.1); CREATININE 3.1 mg/dL (0.6-1.3); MAGNESIUM 2.2 mg/dL (1.8-2.4); PHOSPHORUS 4.8 mg/dL (2.5-4.9)
[2016-12-20 05:07] LABS: POTASSIUM 6.4 mmol/L (3.5-5.1)
--- NOTE | 2016-12-20 07:50 | NUR ---
WASHER CUTTER: pt.is A/Ox3, no any pain now, no c/o, had Morphine x2 doses over night, SR, O2 sat. WNL, getting HD, SBP 85-95, HD is aware, ok to keep on, BS 166
[2016-12-20] MEDS: BLOOD SUGAR DIAGNOSTIC 1 EACH STRIP IN SCH ×4 (08:23→22:05)
[2016-12-20] MEDS: PANTOPRAZOLE 40 MG TABLET.DR PO SCH (08:23)
[2016-12-20] MEDS: glipiZIDE 10 MG TABLET PO SCH (08:29)
[2016-12-20] MEDS: ASPIRIN 81 MG TAB.CHEW PO SCH (08:29)
[2016-12-20] MEDS: INSULIN REGULAR, HUMAN 100 UNIT/ML 3 ML VIAL SQ PRN ×4 (08:29→22:22)
[2016-12-20] MEDS: GABAPENTIN 300 MG CAPSULE PO SCH ×4 (08:29→17:00)
[2016-12-20] MEDS ORDERED: FUROSEMIDE 40 MG TABLET PO SCH (09:00)
[2016-12-20] MEDS: METOPROLOL TARTRATE 50 MG TABLET PO SCH (09:00)
[2016-12-20] MEDS: CLONIDINE HCL 0.1 MG TABLET PO SCH (09:00)
--- NOTE | 2016-12-20 09:30 | NUR ---
JUNIOR MECHANICAL ENGINEER: pt.is A/Ox3, no c/o, SR with PVCs, SBP 81-110, hold clonidine, metoprolol, HD done, 100 ml out, is in room, updated with all above
--- NOTE | 2016-12-20 10:09 | NUR ---
WEBSPHERE CONSULTANT: is in room, updated with pt.current condition, VS, SBP 78-92, MAP 58-69 last hr, asymptomatic, I/O, HD done, labs, said: ok to transfer to [facility], see new orders
--- NOTE | 2016-12-20 10:40 | NUR ---
INTERMEDIATE CARD TENDER: SBP 75-85, MAP 55-64, SR, O2sat. WNL, Pt.is aware/alert, no c/o, paged
--- NOTE | 2016-12-20 10:50 | NUR ---
CALIBRATION SPECIALIST: answered: keep pt.in ICU, no orders for IVF/pressor for now
--- NOTE | 2016-12-20 11:29 | NUR ---
CLIENT APPLICATION SUPPORT ENGINEER: DPM is in room, checked wounds, updated, no order for now
--- NOTE | 2016-12-20 11:45 | NUR ---
SEWAGE PLANT ATTENDANT: no order in comp.for Vanco level AM time before HD, notified pharmacy, will process and endorse next shifts nurse
--- NOTE | 2016-12-20 12:15 | NUR ---
d/w mary wan and chandler albright low bp with sbp 72-80 mmhg. no orders
--- NOTE | 2016-12-20 12:40 | NUR ---
METAL RIVETING MACHINE OPERATOR: pt.refused to get Gabapentin
--- NOTE | 2016-12-20 12:45 | NUR ---
WEDDING CAKE DESIGNER: pt.c/o L.foot severe contin. pain 8-02/16, was notified re Morphine side effect with resp.status, BP suppress risk, confirmed pain level and needs high dose of pain meds, was in room, updated re HD, VS, I/O, low BP, meds, labs, said: for BP parameters ivf/pressor order call primary MD, Morphine 4 mg IV x one given
--- NOTE | 2016-12-20 13:08 | NUR ---
CALL TO DR SILVA REGARDING BP 71/49 AND TO R/V MEDS WHICH INCLUDE CATAPRES AND LOPRESSOR (BOTH HELD THIS AM).
[2016-12-20] MEDS ORDERED: NOREPINEPHRINE 16 MG in IV D5W 500 ML IV PRN (13:30)
--- NOTE | 2016-12-20 13:30 | NUR ---
I AGAIN D/W DR SOTO LOW BP-START LEVOPHED AND ANTIHYPERTENSIVES D/'D
--- NOTE | 2016-12-20 13:30 | NUR ---
MARKETING PROJECT SPECIALIST: pt.is awake, weak, alert, BP 85/61, SR 77, Levophed gtt started
[2016-12-20] MEDS ORDERED: IV SET PRIMARY PUMP SET 1 EA INFUS.SET MC ONE (13:33)
[2016-12-20] MEDS ORDERED: VANCOMYCIN 1 GM in IV D5W 250 ML IV ONE (15:00)
--- NOTE | 2016-12-20 15:30 | NUR ---
HEEL SEAT FLAP STAPLER: checked BP manually - equal with BP monitoring
[2016-12-20 16:15] LABS: APPEARANCE,URINE CLEAR (CLEAR); BILIRUBIN,URINE NEGATIVE (NEGATIVE); BLOOD, URINE NEGATIVE Ery/uL (NEGATIVE); COLOR,URINE YELLOW (YELLOW); KETONES,URINE NEGATIVE (NEGATIVE); LEUKOCYTE ESTERASE ,URINE NEGATIVE (NEGATIVE); NITRITE, URINE NEGATIVE (NEGATIVE); PROTEIN,URINE TRACE mg/dl (NEGATIVE); UGLUCOSE NEGATIVE (NEGATIVE); UROBILINOGEN,URINE 0.2 EU/dL (0.2)
[2016-12-20 16:20] LABS: CREATININE, URINE 214.6 MG/DL (30.0-125.0); URINE TOTAL PROTEIN 49.2 mg/dL (0-11.9)
[2016-12-20 16:24] LABS: SQUAMOUS EPITHELIAL CELL,UR Few /HPF (None Seen)
[2016-12-20 16:25] LABS: BACTERIA,URINE Few /HPF (None Seen); RBC,URINE 0-2 /HPF (0-2)
[2016-12-20 17:03] LABS: EOSINOPHIL,URINE None Seen
--- NOTE | 2016-12-20 18:02 | NUR ---
SELF STORAGE MANAGER: pt.: no c/o, no pain now, SR, SBP over 90, MAP over 65, Levophed is off since , pt.refused for PM care, said: after dinner, wounds care is done per PDM orders, Vanco 1gm IV after HD given, BS 256, covered with sq 6 units R.insulin, no s/s of altered glucose level, able to urinate/250ml, 2D echo US done
[2016-12-20] MEDS: ATORVASTATIN 10 MG TABLET PO SCH (21:36)
[2016-12-20] MEDS: DOCUSATE SODIUM 100 MG CAPSULE PO SCH (21:36)
--- NOTE | 2016-12-20 22:36 | NUR ---
ENTERTAINMENT AGENT DF ACCU CHECK OF 212 COVERED WITH 4 UNITS REGULAR INSULIN. PT C/O PAIN TO LEFT FOOT WOUND,REPOSITIONED FOR COMFORT PT ADMIN MORPHINE 4MG IVP. PROVIDED PT EDUCATION PT VERBALIZES GOOD UNDERSTANDING REGARDING POC.
[2016-12-21] VITALS (21 sets, daily range): BP systolic 87–139; BP diastolic 52–80
[2016-12-21] MEDS: MORPHINE SULFATE INJ 4 MG/ML DISP.SYRIN IV PRN ×4 (00:40→20:58)
--- NOTE | 2016-12-21 01:06 | NUR ---
PT C/O PAIN TO LEFT FOOT WOUND,REPOSITIONED FOR COMFORT PT ADMIN MORPHINE 4MG IVP.VSS A/OX4
[2016-12-21 04:52] LABS: BASOPHILS % (AUTO) 0.4 % (0.0-2.0); EOSINOPHILS # (AUTO) 0.1 /CMM (0.0-0.7); EOSINOPHILS % (AUTO) 1.7 % (0.0-6.0); HEMATOCRIT 33 % (39-51); HEMOGLOBIN 10.9 g/dL (13.5-17.5); LYMPHOCYTES # (AUTO) 1.4 /CMM (0.8-4.8); LYMPHOCYTES % (AUTO) 18.2 % (20.0-44.0); MEAN CORPUSCULAR HEMOGLOBIN 31 PG (26.0-33.0); MEAN CORPUSCULAR HGB CONC 34 g/dl (31.0-36.0); MEAN CORPUSCULAR VOLUME 92 fL (80-96); MONOCYTES # (AUTO) 0.9 /CMM (0.1-1.30); MONOCYTES % (AUTO) 11.1 % (2.0-12.0); NEUTROPHILS # (AUTO) 5.4 /CMM (1.8-8.9); NEUTROPHILS % (AUTO) 68.6 % (43.0-81.0); PLATELET COUNT (AUTO) 151 /CMM (150-450); RDW COEFFICIENT OF VARIATION 13.5 (11.5-15.0); RED BLOOD CELL COUNT(AUTO) 3.53 MIL/uL (4.5-6.0); WHITE BLOOD COUNT (AUTO) 7.9 K/uL (4.3-11.0)
[2016-12-21 05:07] LABS: ALBUMIN 2.8 g/dL (3.4-5.0); BILIRUBIN,TOTAL 0.4 mg/dL (0.2-1.0); CALCIUM, SERUM 8.4 mg/dL (8.5-10.1); CREATININE 1.9 mg/dL (0.6-1.3); MAGNESIUM 2.1 mg/dL (1.8-2.4); TOTAL PROTEIN, SERUM 7.2 g/dL (6.4-8.2)
[2016-12-21] MEDS: PIPERACILLIN /TAZOBACTAM 2.25 G in IV D5W 50 ML IV SCH ×3 (05:55→20:59)
[2016-12-21] MEDS: PANTOPRAZOLE 40 MG TABLET.DR PO SCH (07:39)
[2016-12-21] MEDS: BLOOD SUGAR DIAGNOSTIC 1 EACH STRIP IN SCH ×4 (07:45→22:04)
--- NOTE | 2016-12-21 08:00 | NUR ---
PAPERBOARD BOX MAKER: pt.is A/Ox3, got pain meds x3 over night, no c/o pain now, SR, SBP over 90, MAP over 65, O2 sat. WNL, BS 156 now-refused for insulin sq shot per SS
--- NOTE | 2016-12-21 08:30 | NUR ---
TERMITE EXTERMINATOR HELPER: HD nurseLorene called, updated with labs
[2016-12-21 08:37] LABS: APPEARANCE,URINE CLEAR (CLEAR); BILIRUBIN,URINE NEGATIVE (NEGATIVE); BLOOD, URINE NEGATIVE Ery/uL (NEGATIVE); COLOR,URINE YELLOW (YELLOW); KETONES,URINE NEGATIVE (NEGATIVE); LEUKOCYTE ESTERASE ,URINE NEGATIVE (NEGATIVE); NITRITE, URINE NEGATIVE (NEGATIVE); PROTEIN,URINE TRACE mg/dl (NEGATIVE); UGLUCOSE TRACE mg/dL (NEGATIVE); UROBILINOGEN,URINE 0.2 EU/dL (0.2)
[2016-12-21 08:49] LABS: BACTERIA,URINE None seen /HPF (None Seen); RBC,URINE 0-2 /HPF (0-2); SQUAMOUS EPITHELIAL CELL,UR 0-2 /HPF (None Seen); WBC,URINE 0-2 /HPF (0-3)
[2016-12-21] MEDS: GABAPENTIN 300 MG CAPSULE PO SCH ×3 (09:00→17:00)
--- NOTE | 2016-12-21 09:04 | NUR ---
FERN PICKER: is in room, updated with pt.current condition, VS, Levophed is off, said: ok transfer to MS
[2016-12-21] MEDS: glipiZIDE 10 MG TABLET PO SCH (09:28)
[2016-12-21] MEDS: ASPIRIN 81 MG TAB.CHEW PO SCH ×2 (09:28→09:35)
[2016-12-21] MEDS: NEOMY SULF/BACITRAC ZN/POLY 15 GM TUBE TP SCH (09:29)
[2016-12-21 09:59] LABS: EOSINOPHIL,URINE None Seen
--- NOTE | 2016-12-21 10:00 | NUR ---
ROD DRAWER: pt.is transferred to [facility] after report for DOE Willams
--- NOTE | 2016-12-21 10:15 | NUR ---
AM RN NOTE Received patient from ICU as accompanied by ICU staff via W/C at this time. Pt awake, A/O X4 verbally responsive. No SOB noted resp even and non-labored. IV site on RAC #20 intact and patent, no IV site on LAC. RUC subclavian triple lumen and R IJ HD Cath covered with transparent dressing. Dressing intact on right lower leg and right foot. Left 4th toe wound open to air. Pt oriented to new room. Bed in low locked position. Will continue to monitor and call light with in reach.
[2016-12-21] MEDS: INSULIN REGULAR, HUMAN 100 UNIT/ML 3 ML VIAL SQ PRN ×3 (11:54→22:07)
[2016-12-21 12:00] LABS: CREATININE, URINE 88.3 MG/DL (30.0-125.0)
[2016-12-21] MEDS ORDERED: PIPERACILLIN /TAZOBACTAM 3.375 G in IV D5W 50 ML IV SCH (12:00)
[2016-12-21 12:08] LABS: URINE TOTAL PROTEIN 43.2 mg/dL (0-11.9)
[2016-12-21] MEDS ORDERED: IV SET PRIMARY PUMP SET 1 EA INFUS.SET MC ONE (15:29)
--- NOTE | 2016-12-21 15:40 | NUR ---
AM RN NOTE Confirmed with Lilian (Pharmacist) and vanco started at this time.
[2016-12-21] MEDS ORDERED: VANCOMYCIN 1 GM in IV D5W 250 ML IV SCH (16:00)
--- NOTE | 2016-12-21 18:10 | NUR ---
AM RN NOTE Patient resting in his bed, no acute distress noted. Refused Neurontin afternoon and evening dose. Complaint with insulin. Will endorse care to next shift.
--- NOTE | 2016-12-21 19:30 | NUR ---
RN NOTES: - RECEIVED ASLEEP ON BED ON SEMI FOWLERS POSITION, A/OX4.IV SITE RAC GAUGE#20 PATENT, RUC SUBCLAVIAN TRIPLE LUMEN AND R IJ HD CATH COVERED WITH TRANSPARENT DRESSING, NO SIGN RESPIRATORY DISTRESS,FALL SAFETY AND ASPIRATION PRECAUTION OBSERVE.DRESSING INTACT ON THE RIGHT LOWER LEG AND RIGHT FOOT.LEFT 4TH TOE WOUND OPEN TO AIR. CALL LIGHT WITHIN EASY REACH.
[2016-12-21] MEDS ORDERED: SECONDARY IV SET 1 EA INFUS.SET MC ONE (20:45)
--- NOTE | 2016-12-21 21:51 | NUR ---
RN NOTES; AT 2057 PATIENT COMPLAINED OF PAIN 10/10 ON BLE,NON PHARMACOLOGIC INTERVENTION RENDERED,HE REQUEST FOR HIS PAIN MEDICATION,BP-131/73 SC-77,MORPHINE GIVEN PER PATIENT REQUEST, CALL LIGHT WITHIN EASY REACH,KEEP ROOM IN DIM LIGHT TO FACILITATE SLEEP.
--- NOTE | 2016-12-21 22:00 | NUR ---
RN NOTES: BLOOD SUGAR CHECK-260, INSULIN GIVEN PER SCALE WILL CONTINUE TO MONITOR FOR SIGN OF HYPER/HYPOGLYCEMIA.
[2016-12-21] MEDS: DOCUSATE SODIUM 100 MG CAPSULE PO SCH (22:04)
[2016-12-21] MEDS: ATORVASTATIN 10 MG TABLET PO SCH (22:04)
[2016-12-22] MEDS: PIPERACILLIN /TAZOBACTAM 2.25 G in IV D5W 50 ML IV SCH ×3 (04:14→21:53)
[2016-12-22] MEDS ORDERED: VANCOMYCIN 500 MG in IV D5W 100 ML IV PRN ×2 (06:00→14:30)
[2016-12-22] MEDS: BLOOD SUGAR DIAGNOSTIC 1 EACH STRIP IN SCH ×4 (06:34→21:55)
[2016-12-22] MEDS: INSULIN REGULAR, HUMAN 100 UNIT/ML 3 ML VIAL SQ PRN ×4 (06:35→22:12)
--- NOTE | 2016-12-22 06:41 | NUR ---
RN NOTES: PATIENT ASLEEP IN BED, NO SOB, SKIN WARM TO TOUCH,NO SIGN OF HYPER/HYPOGLYCEMIA NOTED, BLOOD SUGAR CHECKED-117, NO INSULIN GIVEN PER SCALE,BED LOW AND LOCKED, CALL LIGHT WITHIN REACH.ENDORSED TO NEXT SHIFT FOR CONTINUITY OF CARE.
--- NOTE | 2016-12-22 07:31 | NUR ---
AM RN NOTE Received patient sleeping comfortably in his bed, no acute distress noted. Resp even and non-labored. IV site intact and patent. Bed in low locked position. Will continue to monitor. Call light with in reach.
[2016-12-22 07:33] LABS: BASOPHILS % (AUTO) 0.3 % (0.0-2.0); EOSINOPHILS # (AUTO) 0.1 /CMM (0.0-0.7); EOSINOPHILS % (AUTO) 1.4 % (0.0-6.0); HEMATOCRIT 34 % (39-51); HEMOGLOBIN 11.3 g/dL (13.5-17.5); LYMPHOCYTES # (AUTO) 1.8 /CMM (0.8-4.8); LYMPHOCYTES % (AUTO) 18.6 % (20.0-44.0); MEAN CORPUSCULAR HEMOGLOBIN 31 PG (26.0-33.0); MEAN CORPUSCULAR HGB CONC 33 g/dl (31.0-36.0); MEAN CORPUSCULAR VOLUME 93 fL (80-96); MONOCYTES # (AUTO) 0.8 /CMM (0.1-1.30); MONOCYTES % (AUTO) 7.8 % (2.0-12.0); NEUTROPHILS # (AUTO) 7.1 /CMM (1.8-8.9); NEUTROPHILS % (AUTO) 71.9 % (43.0-81.0); PLATELET COUNT (AUTO) 161 /CMM (150-450); RED BLOOD CELL COUNT(AUTO) 3.71 MIL/uL (4.5-6.0); WHITE BLOOD COUNT (AUTO) 9.9 K/uL (4.3-11.0)
[2016-12-22 07:43] LABS: CALCIUM, SERUM 8.5 mg/dL (8.5-10.1); CREATININE 1.7 mg/dL (0.6-1.3); POTASSIUM 5.2 mmol/L (3.5-5.1)
[2016-12-22 08:00] VITALS: BP 119/66
[2016-12-22] MEDS: GABAPENTIN 300 MG CAPSULE PO SCH ×3 (08:13→17:00)
[2016-12-22] MEDS: glipiZIDE 10 MG TABLET PO SCH (08:13)
[2016-12-22] MEDS: ASPIRIN 81 MG TAB.CHEW PO SCH (08:13)
[2016-12-22] MEDS: PANTOPRAZOLE 40 MG TABLET.DR PO SCH (08:13)
[2016-12-22] MEDS: MORPHINE SULFATE INJ 4 MG/ML DISP.SYRIN IV PRN ×4 (08:13→21:47)
[2016-12-22] MEDS: NEOMY SULF/BACITRAC ZN/POLY 15 GM TUBE TP SCH (08:14)
[2016-12-22] MEDS ORDERED: SODIUM POLYSTYRENE SULFONATE 15 G/60 ML BOTTLE PO ONE (09:30)
[2016-12-22] MEDS: CARVEDILOL 3.125 MG TABLET PO SCH ×2 (10:00→21:51)
--- NOTE | 2016-12-22 10:35 | NUR ---
AM RN NOTE Coreg and Kayexalate held due to dialysis at this time. Dr. Romero made aware.
--- NOTE | 2016-12-22 12:45 | NUR ---
AM RN NOTE Pt had hemodialysis done with no output.
--- NOTE | 2016-12-22 12:55 | NUR ---
AM RN NOTE Anderson (Pharamcist) made aware that pt had dialysis today.
[2016-12-22 16:00] VITALS: BP 124/68
--- NOTE | 2016-12-22 18:20 | NUR ---
AM RN NOTE Patient awake, eating dinner at this time. No acute distress noted. All needs met and attended in timely manner. Will endorse care to next shift.
--- NOTE | 2016-12-22 19:35 | NUR ---
RN OPENING NOTES RECEIVED REPORT FROM DEANNA RNVERN. FOUND Pt AWAKE RESTING IN BED. NO S/S OF ACUTE DISTRESS OR SOB NOTED. Pt IS A/OX4, VERBAL, ABLE TO MAKE NEEDS KNOWN. IV ACCESS ON RAC #20G, SL. RT UPPER CHEST WALL TRIPLE LUMEN. RIJ HD CATH. SAFETY MEASURES IN PLACE. BED LOW, LOCKED, HOB ELEVATED, SIDE RAILS UP, CALL LIGHT AND BEDSIDE TABLE WITHIN REACH. WILL CONTINUE TO MONITOR Pt THROUGHOUT THE NIGHT FOR SAFETY.
[2016-12-22 20:00] VITALS: BP 131/76
[2016-12-22] MEDS: DOCUSATE SODIUM 100 MG CAPSULE PO SCH (21:51)
[2016-12-22] MEDS: ATORVASTATIN 10 MG TABLET PO SCH (21:51)
[2016-12-22] MEDS ORDERED: IV NS 0.9% 250 ML IV ONE (21:54)
[2016-12-22] MEDS ORDERED: SECONDARY IV SET 1 EA INFUS.SET MC ONE (21:54)
--- NOTE | 2016-12-22 22:00 | NUR ---
RN NOTES ACCUCHECK BG 229. ADMINISTERED 4UN OF INSULIN PER SLIDING SCALE. SNACKS PROVIDED AT BEDSIDE. WILL CONTINUE TO MONITOR BG LEVELS.
--- NOTE | 2016-12-22 23:37 | NUR ---
RN NOTES LOW GRADE TEMP OF 99.5F ADMINISTERED TYLENOL 650MG/2 TABS.
[2016-12-23] MEDS: PIPERACILLIN /TAZOBACTAM 2.25 G in IV D5W 50 ML IV SCH ×2 (05:21→12:12)
[2016-12-23] MEDS: MORPHINE SULFATE INJ 4 MG/ML DISP.SYRIN IV PRN ×3 (05:23→16:39)
[2016-12-23] MEDS: BLOOD SUGAR DIAGNOSTIC 1 EACH STRIP IN SCH ×3 (06:38→17:39)
--- NOTE | 2016-12-23 06:42 | NUR ---
RN NOTES ACCUCHECK BG 173. Pt REFUSED INSULIN. STATED THAT HE ONLY TAKES INSULIN WHEN BG IS OVER 200.
[2016-12-23 06:45] LABS: BASOPHILS % (AUTO) 0.4 % (0.0-2.0); EOSINOPHILS # (AUTO) 0.3 /CMM (0.0-0.7); EOSINOPHILS % (AUTO) 3.5 % (0.0-6.0); HEMATOCRIT 35 % (39-51); HEMOGLOBIN 11.3 g/dL (13.5-17.5); LYMPHOCYTES # (AUTO) 1.8 /CMM (0.8-4.8); LYMPHOCYTES % (AUTO) 22.5 % (20.0-44.0); MEAN CORPUSCULAR HEMOGLOBIN 30 PG (26.0-33.0); MEAN CORPUSCULAR HGB CONC 33 g/dl (31.0-36.0); MEAN CORPUSCULAR VOLUME 93 fL (80-96); MONOCYTES # (AUTO) 0.9 /CMM (0.1-1.30); MONOCYTES % (AUTO) 11.4 % (2.0-12.0); NEUTROPHILS % (AUTO) 62.2 % (43.0-81.0); PLATELET COUNT (AUTO) 156 /CMM (150-450); RDW COEFFICIENT OF VARIATION 12.9 (11.5-15.0); RED BLOOD CELL COUNT(AUTO) 3.72 MIL/uL (4.5-6.0)
--- NOTE | 2016-12-23 06:50 | NUR ---
RN CLOSING NOTES NO SIGNIFICANT CHANGES IN Pt's CONDITION. NO S/S OF ACUTE DISTRESS OR SOB NOTED. ALL NEEDS MET AND ATTENDED TO. SAFETY MEASURES IN PLACE. WILL ENDORSE TO DAYSHIFT RN FOR Pt's CHIO.
[2016-12-23 07:10] LABS: CALCIUM, SERUM 8.6 mg/dL (8.5-10.1); CREATININE 1.5 mg/dL (0.6-1.3); POTASSIUM 4.7 mmol/L (3.5-5.1)
--- NOTE | 2016-12-23 07:44 | NUR ---
MS RN OPENING NOTES Received patient awake in bed in no acute signs of distress. A/O x 4, verbally responsive with no c/o pain or discomforts at this time. On room air, respiration even and non-labored. Pt with IV site on right AC intact and patent. He also has triple lumen on right chest wall and HD on right IJ intact. Bed in low and locked position. Call light within reach. will maintain all safety measures and will continue to monitor pt accordingly.
[2016-12-23 08:00] VITALS: BP 98/62
[2016-12-23] MEDS: PANTOPRAZOLE 40 MG TABLET.DR PO SCH (08:13)
[2016-12-23] MEDS: GABAPENTIN 300 MG CAPSULE PO SCH ×3 (08:13→16:42)
[2016-12-23] MEDS: ASPIRIN 81 MG TAB.CHEW PO SCH (08:14)
[2016-12-23] MEDS: glipiZIDE 10 MG TABLET PO SCH (08:14)
[2016-12-23] MEDS: NEOMY SULF/BACITRAC ZN/POLY 15 GM TUBE TP SCH (08:17)
[2016-12-23] MEDS ORDERED: CARVEDILOL 3.125 MG TABLET PO SCH (09:00)
--- NOTE | 2016-12-23 10:58 | NUR ---
RN NOTES HEMODIALYSIS NURSE CAME AND REMOVED RIGHT IJ HD CATHETER. PRESSURE GAUZE IN PLACE, NO ACTIVE BLEEDING NOTED. WILL CONTINUE TO MONITOR.
[2016-12-23] MEDS: INSULIN REGULAR, HUMAN 100 UNIT/ML 3 ML VIAL SQ PRN ×2 (12:10→17:41)
--- NOTE | 2016-12-23 13:00 | NUR ---
RN NOTES MAGALIS PENA CAME AND ASSESSED PT'S WOUNDS ON B/L FEET. HE SAID THAT PT NEEDS DR WILSON CLEARANCE BEFORE HE WILL BE DISCHARGED.
[2016-12-23 14:13] LABS: *SPE A/G RATIO 0.9 (0.7-1.7); *SPE ALBUMIN 2.9 g/dL (2.9-4.4); *SPE ALPHA-1-GLOBULIN 0.3 g/dL (0.0-0.4); *SPE BETA GLOBULIN 1.1 g/dL (0.7-1.3); *SPE GLOBULIN, TOTAL 3.3 g/dL (2.2-3.9); *SPE M-SPIKE Not Observed g/dL (Not Observed); *SPE PROTEIN TOTAL 6.2 g/dL (6.0-8.5); *SPEGAMMA GLOBULIN 0.9 g/dL (0.4-1.8)
[2016-12-23 16:00] VITALS: BP 138/77
--- NOTE | 2016-12-23 19:03 | NUR ---
RN CLOSING NOTES PATIENT RESTING IN BED WATCHING TV. ALERT AND ORIENTED X4, NO SIGNIFICANT CHANGES IN PT'S CONDITION NOTED. ON ROOM AIR, NO S/S OF ACUTE DISTRESS OR SOB NOTED. ALL NEEDS ATTENDED WELL. SAFETY MEASURES IN PLACE. WILL ENDORSED TO OYSTER GRADER RN THAT PATIENT WILL BE DISCHARGED TONIGHT AT 2030H TO [facility].
--- NOTE | 2016-12-23 19:30 | NUR ---
RN OPENING NOTES RECEIVED REPORT FROM MINNIE HUERTA RN. FOUND Pt ASLEEP IN BED. EQUAL CHEST RISE AND FALL. NO S/S OF ACUTE DISTRESS OR SOB NOTED. RIJ HD CATH WAS REMOVED. IV ACCESS ON RAC #20G, SL. RUCW TRIPLE LUMEN. BEING TRANSFERRED TO [facility] . WILL CALL TO GIVE REPORT. EMT TRANSPORTATION SCHEDULED FOR MERCHANDISING LEAD @2029. SAFETY MEASURES IN PLACE.
[2016-12-23] MEDS ORDERED: VANCOMYCIN 1 GM in IV D5W 250 ML IV SCH (20:00)
[2016-12-23 20:11] VITALS: BP 130/65
--- NOTE | 2016-12-23 20:30 | NUR ---
RN NOTES CALLED [facility] . GAVE REPORT TO DEVIN DE LEON RN. Pt TO BE PLACED IN ROOM 542-A. Pt's VS BP 130/65, HR 91, R 20, T 98.7, O2 ON RA 94%.
--- NOTE | 2016-12-23 21:00 | NUR ---
VP DESIGN NOTES EMT TRANSPORTATION ARRIVED FOR GRAIN AND YEAST PLANTS SUPERVISOR. IV ACCESS ON RAC #20G KEPT IN PLACE. PT IS A/OX3, VERBAL, ABLE TO MAKE NEEDS KNOWN. VS STABLE. RT FOOT WOUND CARE GIVEN, PLACED NEW DRESSING. ALREADY CALLED TO GIVE REPORT TO [facility]. Pt SAFELY TRANSFERRED TO [facility]. NO S/S OF ACUTE DISTRESS OR SOB NOTED.
[2016-12-24 13:16] LABS: PTH, INTACT 64 pg/mL (15-65)
== END 2016-12-23 20:55 | disposition short-term general hospital (02) | DRG 197 ==
LOC: ER 14:10 → ICU 17:50 → MEDSG2 12-21 10:22
PROVIDERS: ADMIT Internal Medicine; ATTEND Internal Medicine
PROC: B543ZZA Ultrasonography of Right Jugular Veins, Guidance (ICD-10-PCS; principal; 2016-12-19)
PROC: 05HP33Z Insertion of Infusion Device into Right External Jugular Vein, Percutaneous Approach (ICD-10-PCS; principal; 2016-12-19)
DX: E11.52 Type 2 diabetes mellitus with diabetic peripheral angiopathy with gangrene (principal); I21.4 Non-ST elevation (NSTEMI) myocardial infarction; N17.9 Acute kidney failure, unspecified; I11.0 Hypertensive heart disease with heart failure; I95.3 Hypotension of hemodialysis; E46 Unspecified protein-calorie malnutrition; I70.262 Atherosclerosis of native arteries of extremities with gangrene, left leg; E87.2 Acidosis; I50.9 Heart failure, unspecified; D64.9 Anemia, unspecified; S81.801A Unspecified open wound, right lower leg, initial encounter; E11.40 Type 2 diabetes mellitus with diabetic neuropathy, unspecified; Z95.1 Presence of aortocoronary bypass graft; E87.5 Hyperkalemia; E78.5 Hyperlipidemia, unspecified; K21.9 Gastro-esophageal reflux disease without esophagitis; I25.10 Atherosclerotic heart disease of native coronary artery without angina pectoris; Z98.62 Peripheral vascular angioplasty status; E11.621 Type 2 diabetes mellitus with foot ulcer; L97.519 Non-pressure chronic ulcer of other part of right foot with unspecified severity; X58.XXXA Exposure to other specified factors, initial encounter; Y93.9 Activity, unspecified; Y92.009 Unspecified place in unspecified non-institutional (private) residence as the place of occurrence of the external cause; Z68.25 Body mass index [BMI] 25.0-25.9, adult; E88.09 Other disorders of plasma-protein metabolism, not elsewhere classified; I25.2 Old myocardial infarction; Z79.84 Long term (current) use of oral hypoglycemic drugs; E83.51 Hypocalcemia; Z79.899 Other long term (current) drug therapy; Z83.3 Family history of diabetes mellitus; Z86.73 Personal history of transient ischemic attack (TIA), and cerebral infarction without residual deficits; Z87.891 Personal history of nicotine dependence
CPT/HCPCS: 36415; 71010-TC; 73630-TC; 76770-TC; 80048-TC; 80053-TC; 80061-TC; 80202-TC; 81000-TC; 82550-TC; 82570-TC; 82962-TC; 83605-TC; 83735-TC; 83970; 84100-TC; 84155; 84155-TC; 84165; 84300-TC; 84443-TC; 84484-TC; 85025-TC; 86140-TC; 87040-TC; 87081-TC; 87086-TC; 90935-TC; 93307-TC; A4606; A6402; J1644; J2270; J2543; J3370; J7040; J7050; J7060; Z7610

== ENCOUNTER 2017-03-14 16:00 | Inpatient (IN) | payer OTHER ==
[~2017-03-14] VITALS: Ht 167.6 cm; Wt 77.8 kg
[~2017-03-14 16:00] MED LIST changes: -FURO40TA5 PO; -LISI40TA4 PO; -METO50TA3 PO
[2017-03-14] MEDS ORDERED: METO25TA20 PO (16:25)
[2017-03-14] MEDS ORDERED: LISI-603 PO (16:25)
[2017-03-14] MEDS ORDERED: MAG30ORA PO (16:25)
[2017-03-14] MEDS ORDERED: MELA3TAB PO (16:25)
[2017-03-14] MEDS ORDERED: FAMO20TA8 PO (16:25)
[2017-03-14] MEDS ORDERED: HYDR4TAB57 PO (16:25)
[2017-03-14] MEDS ORDERED: BLOO-668 IN (16:25)
[2017-03-14] MEDS ORDERED: FURO40TA5 PO (16:25)
[2017-03-14] MEDS ORDERED: MULT1TAB11 PO (16:25)
[2017-03-14] MEDS ORDERED: ATOR10TA PO (16:25)
[2017-03-14] MEDS ORDERED: ASCO500T9 PO (16:25)
[2017-03-14] MEDS ORDERED: AMIN30LI4 PO (16:25)
[2017-03-14 17:23] LABS: BASOPHILS # (AUTO) 0.1 /CMM (0.0-0.2); BASOPHILS % (AUTO) 1.3 % (0.0-2.0); EOSINOPHILS % (AUTO) 0.8 % (0.0-6.0); HEMATOCRIT 39 % (39-51); HEMOGLOBIN 12.5 g/dL (13.5-17.5); LYMPHOCYTES # (AUTO) 1.4 /CMM (0.8-4.8); LYMPHOCYTES % (AUTO) 23.6 % (20.0-44.0); MEAN CORPUSCULAR HEMOGLOBIN 28 PG (26.0-33.0); MEAN CORPUSCULAR HGB CONC 32 g/dl (31.0-36.0); MEAN CORPUSCULAR VOLUME 87 fL (80-96); MONOCYTES # (AUTO) 0.5 /CMM (0.1-1.30); MONOCYTES % (AUTO) 8.4 % (2.0-12.0); NEUTROPHILS # (AUTO) 4.1 /CMM (1.8-8.9); NEUTROPHILS % (AUTO) 65.9 % (43.0-81.0); PLATELET COUNT (AUTO) 220 /CMM (150-450); RDW COEFFICIENT OF VARIATION 13.2 (11.5-15.0); RED BLOOD CELL COUNT(AUTO) 4.49 MIL/uL (4.5-6.0); WHITE BLOOD COUNT (AUTO) 6.1 K/uL (4.3-11.0)
[2017-03-14 17:44] LABS: INR 0.95 (0.87-1.13); PROTHROMBIN TIME 9.9 SECS (9.5-12.7)
[2017-03-14 17:58] LABS: CALCIUM, SERUM 8.5 mg/dL (8.5-10.1); CREATININE 1.8 mg/dL (0.6-1.3)
[2017-03-14 18:07] LABS: POTASSIUM 6.2 mmol/L (3.5-5.1)
--- NOTE | 2017-03-14 19:00 | NUR ---
ASSUME PT CARE. HERE FOR RT FOOT WOUND EVAL. AMPUTATED BIG TOE, 2ND AND 3RD TOE APPEARS GANGRENOUS. SEEN BY EVON GRISSOM. W/ ORDERS WILL CARRY OUT.
--- NOTE | 2017-03-14 19:11 | NUR ---
IVP RAC 18G. DOSE WITNESSED - insulin given; right dose; right patient
--- NOTE | 2017-03-14 19:33 | NUR ---
CALLED [facility], PROBATION AND PATROL AGENT WAS PAGED.
--- NOTE | 2017-03-14 19:45 | NUR ---
RADIOLOGY AT BEDSIDE FOR CHEST XRAY.
[2017-03-14 19:56] LABS: CALCIUM, SERUM 8.4 mg/dL (8.5-10.1); CREATININE 1.7 mg/dL (0.6-1.3)
[2017-03-14 20:00] LABS: MAGNESIUM 1.9 mg/dL (1.8-2.4); PHOSPHORUS 3.9 mg/dL (2.5-4.9)
--- NOTE | 2017-03-14 20:27 | NUR ---
REPORT GIVEN TO ADRIAN. PT AWAITING TRANSFER TO FLOOR. 316.1
--- NOTE | 2017-03-14 20:55 | NUR ---
ARBORIST OPENING NOTES RECEIVED PT FROM ER VIA [facility] VIA ACLS PROTOCOL AT 2051 PATIENT A/O X 4, NO S/S OF RESPIRATORY DISTRESS OR SOB. IV SITE INTACT AND PATENT. HEAD TO TOE ASSESSMENT IS DONE. ATTACH TO TELE MONITOR, SAFETY MEASURES IN PLACE, ON LOW BED TO ENSURE SAFETY. CALL LIGHT WITHIN REACH. WILL CONTINUE TO MONITOR PT.
[2017-03-14 21:00] VITALS: BP 124/68
--- NOTE | 2017-03-14 22:23 | NUR ---
PHYSICAL LABORATORY ASSISTANT NOTES PT REFUSED REGULAR INSULIN 3 UNITS PER PT HE DOESN'T TAKE IT USUALLY. EXPLAINED RISKS AND BENEFITS OFFERED 3 TIMES STILL REFUSED LEAD DESIGNER. HYACINTH MADE AWARE
[2017-03-15] VITALS: BP 129/66
[2017-03-15 04:00] VITALS: BP 134/77
--- NOTE | 2017-03-15 06:26 | NUR ---
INSTRUMENT STERILIZER NOTES PT REFUSED INSULIN 2 UNITS EXPLAINED RISKS AND BENEFITS OFFERED 3 TIMES STILL REFUSED CIO. HYACINTH MADE AWARE AGAIN
--- NOTE | 2017-03-15 06:38 | NUR ---
FLAT CLOTHIER CLOSING NOTES PT ASLEEP HOB ELEVATED AND EASILY AWAKEN, TOLERATING ROOM AIR 02 SAT 100 %. NO S/S OF RESPIRATORY DISTRESS IN STABLE CONDITION. ON ATB WITH NO A/R NOTED. IV SITE NO S/S OF INFILTRATED PATENT AND FLUSHED, NO SOB, AFEBRILE, NEEDS ATTENDED AND ANTICIPATED. NURSING CARE RENDERED. KEPT CLEAN AND DRY AND COMFORTABLE, GOOD SKIN CARE PROVIDED. FREQUENT VISUAL CHECK DONE FOR SAFETY EVERY 2 HOURS. SAFE HAZARD FREE ENVIRONMENT PROVIDED. CALL LIGHT WITHIN EASY TO REACH, ON LOW BED AT ALL TIMES TO ENSURE SAFETY, WILL ENDORSE TO THE NEXT SHIFT CONTINUE PLAN OF CARE.
--- NOTE | 2017-03-15 07:42 | NUR ---
COSMETIC CONSULTANT NOTES PATIENT ALERT AND ORIENTED, C/O PAIN ON LEFT FOOT, BUT REFUSING PAIN MEDICATION AT THIS TIME, PER PATIENT "ITS STILL TOLERABLE." ENCOURAGED PATIENT TO CALL IF PAIN WORSENS, NO S/SX OF ANY DISTRESS, PLAN OF CARE FOR TODAY, AWAITING FOR WOUND CONSULT, NEEDS ATTENDED AND MET, SAFETY MEASURES IN PLACED, CALL LIGHT WITHIN REACH.
[2017-03-15 08:00] VITALS: BP 113/63
[2017-03-15 08:29] LABS: CALCIUM, SERUM 8.5 mg/dL (8.5-10.1); CREATININE 1.8 mg/dL (0.6-1.3); MAGNESIUM 1.9 mg/dL (1.8-2.4); PHOSPHORUS 4.6 mg/dL (2.5-4.9); POTASSIUM 4.8 mmol/L (3.5-5.1)
[2017-03-15 09:55] LABS: BASOPHILS % (AUTO) 0.5 % (0.0-2.0); EOSINOPHILS # (AUTO) 0.1 /CMM (0.0-0.7); EOSINOPHILS % (AUTO) 2.4 % (0.0-6.0); HEMATOCRIT 38 % (39-51); HEMOGLOBIN 12.5 g/dL (13.5-17.5); LYMPHOCYTES # (AUTO) 1.5 /CMM (0.8-4.8); MEAN CORPUSCULAR HEMOGLOBIN 29 PG (26.0-33.0); MEAN CORPUSCULAR HGB CONC 33 g/dl (31.0-36.0); MEAN CORPUSCULAR VOLUME 88 fL (80-96); MONOCYTES # (AUTO) 0.7 /CMM (0.1-1.30); MONOCYTES % (AUTO) 11.1 % (2.0-12.0); NEUTROPHILS # (AUTO) 3.5 /CMM (1.8-8.9); PLATELET COUNT (AUTO) 161 /CMM (150-450); RED BLOOD CELL COUNT(AUTO) 4.35 MIL/uL (4.5-6.0); WHITE BLOOD COUNT (AUTO) 5.9 K/uL (4.3-11.0)
[2017-03-15 12:00] VITALS: BP 119/59
--- NOTE | 2017-03-15 13:29 | NUR ---
DOE READ NOTES S/P RIGHT 2ND TOE WOUND DEBRIDEMENT WITH DR. HUANG, CONSENT SIGNED, PATIENT TOLERATED PROCEDURE WELL, RIGHT FOOT COVERED WITH GAUZE AND KERLIX. PATIENT C/O PAIN 03/18, DILAUDID WILL BE ADMINISTERED. Addendum: 03/15/17 at 1826 by BART DESIR RN ADDENDUM: WOUND TREATMENT RENDERED ON LEFT FOOT.
--- NOTE | 2017-03-15 13:30 | NUR ---
PRESSED OR BLOWN GLASS WORKER NOTES PATIENT SEEN BY DR. WILSON (VASCULAR SURGEON) FOR CONSULT.
[2017-03-15 13:59] LABS: THYROID STIMULATING HORMONE 3.675 uIU/mL (0.358-3.74)
[2017-03-15 16:00] VITALS: BP 124/72
--- NOTE | 2017-03-15 18:48 | NUR ---
RN MS NOTES PATIENT A/OX4, DENIES PAIN AT THIS TIME, WOUND TREATMENT RENDERED, DRESSING REINFORCED, KEPT SKIN CLEAN AND DRY, LEFT FOOT XRAY COMPLETED RESULT STILL PENDING, WILL ENDORSE TO BOTTOM BUFFER FOR CHIO.
--- NOTE | 2017-03-15 19:39 | NUR ---
RN NOTES PATIENT IN BED, ALERT AND ORIENTED X4, CALM, TALKING ON THE PHONE, NO SOB, NO RESPIRATORY DISTRESS, DENIES ANY PAIN AT THIS TIME, S/P RIGHT FOOT DEBRIDEMENT TODAY, DRESSING TO RIGHT FOOT IS CLEAN AND INTACT. NEEDS ATTENDED, CALL LIGHT WITHIN REACH.
[2017-03-15 20:00] VITALS: BP 148/76
--- NOTE | 2017-03-15 21:47 | NUR ---
RN NOTES REFUSED INSULIN, BG 144 MG/DL, EDUCATED ON GLUCOSE CONTROL SECONDARY TO DM AND RIGHT AND LEFT FEET DIABETIC ULCER, PATIENT STILL REFUSED.
--- NOTE | 2017-03-16 06:34 | NUR ---
RN NOTES BG 93 MG/DL, NO INSULIN GIVEN
--- NOTE | 2017-03-16 06:37 | NUR ---
RN NOTES PATIENT IS AWAKE AND ALERT, NO SOB, NO RESPIRATORY DISTRESS, PROVIDED PAIN MEDICATION DURING SHIFT, COMPLAINING OF PAIN OF 8/10 TO BILATERAL FEET SECONDARY TO NON-HEALING DIABETIC WOUNDS. DRESSING CLEAN AND INTACT, COMPLIANT WITH IV THERAPY, WITH EPISODE OF REFUSING INSULIN. NEEDS ATTENDED, CALL LIGHT WITHIN REACH.
--- NOTE | 2017-03-16 07:05 | NUR ---
RN NOTES PT IS RESTING IN BED COMFORTABLY. PT ON RA, RESPIRATIONS ARE EVEN AND UNLABORED. IV ON RAC INTACT AND PATENT. SAFETY MEASURES ARE IN PLACE, CALL LIGHT IS IN REACH. WILL CONTINUE TO MONITOR.
[2017-03-16 07:47] LABS: CALCIUM, SERUM 8.5 mg/dL (8.5-10.1); CREATININE 2.1 mg/dL (0.6-1.3); POTASSIUM 4.7 mmol/L (3.5-5.1)
[2017-03-16 08:00] VITALS: BP 130/65
[2017-03-16 16:00] VITALS: BP 149/66
--- NOTE | 2017-03-16 18:38 | NUR ---
RN NOTES PT IS WATCHING TV IN BED, RESTING COMFORTABLY. PT ON RA, RESPIRATIONS ARE EVEN AND UNLABORED. IV ON RAC INTACT AND PATENT. ALL MEDS WERE GIVEN ORDERED. ALL PATIENT NEEDS WERE MET. WOUND CARE WAS PROVIDED. SAFETY MEASURES ARE IN PLACE, CALL LIGHT IS IN REACH. WILL ENDORSE TO PARAPROFESSIONAL EDUCATION ASSISTANT RN FOR CONTINUITY OF CARE.
--- NOTE | 2017-03-16 19:05 | NUR ---
MS/RN OPENING NOTES PT RECEIVED AWAKE, SITTING UP IN BED, CALM AND PLEASANT. A/OX4. ON ROOM AIR, BREATHING EVEN AND UNLABORED.NO S/S OF DISTRESS NOTED. IV TO RAC PATENT AND INTACT. BED IN LOW/LOCKED POSITION WITH CALL LIGHT IN REACH. SIDE RAILS UPX2. WILL CONTINUE TO MONITOR
[2017-03-16 20:00] VITALS: BP 109/50
[2017-03-16 20:31] VITALS: BP 109/50
--- NOTE | 2017-03-16 22:07 | NUR ---
MS/RN NOTES BLOOD MBDWX=[id number], PT REFUSING INSULIN. EDUCATED PT ON IMPORTANCE OF BLOOD SUGAR CONTROL, RISKS OF HYPERGLYCEMIA. PT VERBALIZED UNDERSTANDING AND STILL REFUSING. WILL MONITOR FOR S/S OF HYPERGLYCEMIA
--- NOTE | 2017-03-17 07:00 | NUR ---
MS/RN CLOSING NOTES PT ASLEEP, EASILY AROUSABLE TO NAME. A/OX4. ON ROOM AIR, BREATHING EVEN AND UNLABORED. DENIES SOB, APPEARS COMFORTABLE. IV TO RAC PATENT AND INTACT. WOUND CARE PROVIDED ORDERED. MADE PT COMFORTABLE DURING SHIFT. ALL NEEDS MET. BED IN LOW/LOCKED POSTIION, CALL LIGHT IN REACH. SIDE RAILS UPX2. ENDORSED TO AM SHIFT CHIO.
--- NOTE | 2017-03-17 07:05 | NUR ---
RN NOTES PT IS IN BED, SLEEPING. PT ON RA, RESPIRATIONS ARE EVEN AND UNLABORED. IV ON RAC INTACT AND PATENT. SAFETY MEASURES ARE IN PLACE, CALL LIGHT IS IN REACH. WILL CONTINUE TO MONITOR.
[2017-03-17 07:50] LABS: BASOPHILS % (AUTO) 0.6 % (0.0-2.0); EOSINOPHILS # (AUTO) 0.2 /CMM (0.0-0.7); EOSINOPHILS % (AUTO) 3.5 % (0.0-6.0); HEMATOCRIT 38 % (39-51); HEMOGLOBIN 12.4 g/dL (13.5-17.5); LYMPHOCYTES # (AUTO) 1.7 /CMM (0.8-4.8); LYMPHOCYTES % (AUTO) 32.1 % (20.0-44.0); MEAN CORPUSCULAR HEMOGLOBIN 29 PG (26.0-33.0); MEAN CORPUSCULAR HGB CONC 33 g/dl (31.0-36.0); MEAN CORPUSCULAR VOLUME 87 fL (80-96); MONOCYTES # (AUTO) 0.5 /CMM (0.1-1.30); MONOCYTES % (AUTO) 9.8 % (2.0-12.0); NEUTROPHILS # (AUTO) 2.9 /CMM (1.8-8.9); PLATELET COUNT (AUTO) 183 /CMM (150-450); RED BLOOD CELL COUNT(AUTO) 4.37 MIL/uL (4.5-6.0); WHITE BLOOD COUNT (AUTO) 5.3 K/uL (4.3-11.0)
[2017-03-17 08:00] VITALS: BP 175/87
[2017-03-17 08:04] LABS: ALBUMIN 3.1 g/dL (3.4-5.0); BILIRUBIN,TOTAL 0.3 mg/dL (0.2-1.0); CALCIUM, SERUM 8.5 mg/dL (8.5-10.1); CREATININE 1.7 mg/dL (0.6-1.3); MAGNESIUM 1.9 mg/dL (1.8-2.4); PHOSPHORUS 4.1 mg/dL (2.5-4.9); POTASSIUM 4.5 mmol/L (3.5-5.1); TOTAL PROTEIN, SERUM 7.5 g/dL (6.4-8.2)
[2017-03-17 16:00] VITALS: BP 156/89
--- NOTE | 2017-03-17 17:37 | NUR ---
RN NOTES PTS BLOOD SUGAR IS 174. PT WAS INFORMED AND STATED THAT HE DIDNT WANT ANY INSULIN NOW.
--- NOTE | 2017-03-17 18:21 | NUR ---
RN NOTES PT IS IN BED, RESTING COMFORTABLY. PT ON RA, RESPIRATIONS ARE EVEN AND UNLABORED. IV ON RAC INTACT AND PATENT, SL. WOUND CARE WAS PROVIDED. ALL MEDS WERE GIVEN ORDERED. PT NEEDS WERE ANTICIPATED AND MET. SAFETY MEASURES ARE IN PLACE, CALL LIGHT IS IN REACH. WILL ENDORSE TO GOGGLES ASSEMBLER RN FOR CONTINUITY OF CARE.
--- NOTE | 2017-03-17 19:20 | NUR ---
MS/RN OPENING NOTES PT RECEIVED AWAKE, HOB ELEVATED HIGH FOWLERS. ON ROOM AIR, BREATHING EVEN AND UNLABORED. DENIES SOB, NO S/S OF DISTRESS OR DISCOMFORT NOTED. IV TO RAC PATENT AND INTACT. BED IN LOW/LOCKED POSITION, CALL LIGHT IN REACH. SIDE RAILS UPX2. WILL CONTINUE TO MONITOR
[2017-03-17 20:00] VITALS: BP 130/77
[2017-03-17 22:30] VITALS: BP 154/82
--- NOTE | 2017-03-17 22:46 | NUR ---
MS/RN NOTES BLOOD NPXSN=[id number], 4 UNITS OF INSULIN ADMINISTERED PER SLIDING SCALE. WILL MONITOR FOR S/S OF HYPOGLYCEMIA
--- NOTE | 2017-03-18 06:59 | NUR ---
MS/RN CLOSING NOTES PT ASLEEP, EASILY AROUSABLE TO NAME. ON ROOM AIR, BREATHING EVEN AND UNLABORED. DENIES SOB, PAIN MANAGED DURING SHIFT. IV TO RAC PATENT AND INTACT. BLOOD SUGAR THIS AM=75, NO INSULIN COVERAGE. BED IN LOW/LOCKED POSITION, CALL LIGHT IN REACH. SIDE RAILS UPX2. MADE PT COMFORTABLE DURING SHIFT .ALL NEEDS MET. WILL ENDORSE TO AM SHIFT CHIO.
[2017-03-18 07:06] LABS: BASOPHILS % (AUTO) 0.4 % (0.0-2.0); EOSINOPHILS # (AUTO) 0.1 /CMM (0.0-0.7); EOSINOPHILS % (AUTO) 1.7 % (0.0-6.0); HEMATOCRIT 38 % (39-51); HEMOGLOBIN 12.4 g/dL (13.5-17.5); LYMPHOCYTES # (AUTO) 1.6 /CMM (0.8-4.8); LYMPHOCYTES % (AUTO) 21.3 % (20.0-44.0); MEAN CORPUSCULAR HEMOGLOBIN 29 PG (26.0-33.0); MEAN CORPUSCULAR HGB CONC 32 g/dl (31.0-36.0); MEAN CORPUSCULAR VOLUME 88 fL (80-96); MONOCYTES # (AUTO) 0.5 /CMM (0.1-1.30); MONOCYTES % (AUTO) 7.3 % (2.0-12.0); NEUTROPHILS # (AUTO) 5.1 /CMM (1.8-8.9); NEUTROPHILS % (AUTO) 69.3 % (43.0-81.0); PLATELET COUNT (AUTO) 197 /CMM (150-450); RDW COEFFICIENT OF VARIATION 14.1 (11.5-15.0); RED BLOOD CELL COUNT(AUTO) 4.34 MIL/uL (4.5-6.0); WHITE BLOOD COUNT (AUTO) 7.4 K/uL (4.3-11.0)
[2017-03-18 07:25] LABS: CALCIUM, SERUM 8.5 mg/dL (8.5-10.1); CREATININE 1.5 mg/dL (0.6-1.3); PHOSPHORUS 4.1 mg/dL (2.5-4.9); POTASSIUM 4.3 mmol/L (3.5-5.1)
--- NOTE | 2017-03-18 07:30 | NUR ---
RECEIVED PT. IN AM ALERT AND ORIENTED X4,PLEASANT,VS STABLE.
[2017-03-18 08:00] VITALS: BP 145/74
[2017-03-18 16:00] VITALS: BP 145/69
--- NOTE | 2017-03-18 18:00 | NUR ---
MED. X2 FOR PAIN WITH DILAUDID AND X1 WITH NORCO WITH GOOD RELIEF.
--- NOTE | 2017-03-18 19:30 | NUR ---
MS/RN OPENING NOTES PT RECEIVED SITTING UP IN BED, HIGH FOWLERS POSITION. ON ROOM AIR, BREATHING EVEN AND UNLABORED. IN NO APPARENT DISTRESS, NO SOB AND APPEARS COMFORTABLE AT THIS TIME. IV TO RAC LEAKING AND INFORMED PT WILL HAVE TO REINSERT. PT REQUESTED TO INSERT NEW IV TO RIGHT ARM ONLY BECAUSE HE WANTS TO "SAVE HIS VEINS ON THE LEFT ARM FOR SURGERY". BED IN LOW/LOCKED POSITION WITH CALL LIGHT IN REACH. SIDE RAILS UPX2. WILL CONTINUE TO MONITOR
[2017-03-18 20:00] VITALS: BP 141/70
--- NOTE | 2017-03-19 00:38 | NUR ---
MS/RN NOTES ORDER FOR MIDLINE INSERTION NOTED FROM DR. YU. CREDIT COLLECTIONS ANALYST MADE AWARE. WILL NOTIFY NURSING TELECASTING TECHNICIAN
--- NOTE | 2017-03-19 07:20 | NUR ---
MS/RN CLOSING NOTES PT ASLEEP, AROUSABLE TO NAME. A/OX4, ON ROOM AIR, BREATHING EVEN AND UNLABORED. IV TO RIGHT HAND PATENT AND INTACT. MADE PT COMFORTABLE DURING SHIFT. ALL NEEDS MET. BED IN LOW/LOCKED POSITION, CALL LIGHT IN REACH. SIDE RAILS UPX2. ENDORSED TO AM SHIFT CHIO.
[2017-03-19 08:00] VITALS: BP 158/82
--- NOTE | 2017-03-19 08:07 | NUR ---
RN Notes On bed awake,alert and oriented. Not in any form of distress. no headache or dizziness. Both lungs clear to auscultate. With right foot and leg pain 10/10 PS. Dilaudid 1 mg IVP given. encouraged relaxation technique. Will monitor.
[2017-03-19 08:24] LABS: CALCIUM, SERUM 8.6 mg/dL (8.5-10.1); CREATININE 1.4 mg/dL (0.6-1.3); POTASSIUM 4.9 mmol/L (3.5-5.1)
[2017-03-19 16:00] VITALS: BP 156/76
[2017-03-19 20:00] VITALS: BP 136/63
--- NOTE | 2017-03-20 06:30 | NUR ---
MS RN NOTES AWAKE & RESPONSIVE. NOT IN ANY DISTRESS. NO SOB NOTED. DENIES ANY PAIN OR DISCOMFORT AT THIS TIME. WITH IV-HL PATENT & INTACT. MONITORED ACCORDINGLY. CALL LIGHT WITHIN REACH. BED IN LOWEST POSITION. SR UP X 2 FOR SAFETY. WILL ENDORSE TO NEXT SHIFT.
--- NOTE | 2017-03-20 07:30 | NUR ---
RN OPENING NOTES RECEIVED PATIENT AWAKE RESTING COMFORTABLY IN BED. AOX4. DENIES ANY CP OR SOB. RESPIRATION EVEN AND UNLABORED. NO ACUTE DISTRESS. WOUNDS TO BOTH FEET. IV ACCESS ON RIGHT HAND 22G PATENT AND INTACT. COMPLAINTS OF PAIN 8/10 ON THE LEGS AND FEET. WILL IMPLEMENT PAIN MANAGEMENT MEASURE. BED LOCKED IN THE LOWEST POSITION WITH SIDE RAILS UPX2. CALL LIGHT WITHIN REACH WILL CONTINUE TO MONITOR, ASSESS AND EDUCATE PATIENT THROUGHOUT SHIFT.
[2017-03-20 07:49] LABS: BASOPHILS # (AUTO) 0.1 /CMM (0.0-0.2); BASOPHILS % (AUTO) 0.9 % (0.0-2.0); EOSINOPHILS # (AUTO) 0.2 /CMM (0.0-0.7); EOSINOPHILS % (AUTO) 2.3 % (0.0-6.0); HEMATOCRIT 38 % (39-51); HEMOGLOBIN 12.7 g/dL (13.5-17.5); LYMPHOCYTES # (AUTO) 1.9 /CMM (0.8-4.8); MEAN CORPUSCULAR HEMOGLOBIN 29 PG (26.0-33.0); MEAN CORPUSCULAR HGB CONC 33 g/dl (31.0-36.0); MEAN CORPUSCULAR VOLUME 87 fL (80-96); MONOCYTES # (AUTO) 0.6 /CMM (0.1-1.30); MONOCYTES % (AUTO) 8.7 % (2.0-12.0); NEUTROPHILS # (AUTO) 4.2 /CMM (1.8-8.9); NEUTROPHILS % (AUTO) 60.1 % (43.0-81.0); PLATELET COUNT (AUTO) 216 /CMM (150-450); RED BLOOD CELL COUNT(AUTO) 4.44 MIL/uL (4.5-6.0); WHITE BLOOD COUNT (AUTO) 6.9 K/uL (4.3-11.0)
[2017-03-20 08:00] VITALS: BP 161/76
[2017-03-20 08:03] LABS: CALCIUM, SERUM 8.5 mg/dL (8.5-10.1); CREATININE 1.4 mg/dL (0.6-1.3); MAGNESIUM 2.1 mg/dL (1.8-2.4); PHOSPHORUS 4.3 mg/dL (2.5-4.9); POTASSIUM 4.9 mmol/L (3.5-5.1)
--- NOTE | 2017-03-20 10:30 | NUR ---
RN NON ADMIN NOTES PATIENT IS HR 57. WILL HOLD LOPRESSOR.
[2017-03-20] MEDS ORDERED: DAPT500V2 IV (13:00)
[2017-03-20] MEDS ORDERED: CEFE1FRO IV (13:00)
--- NOTE | 2017-03-20 13:06 | NUR ---
RN NON ADMIN NOTES PATIENT REFUSED INSULIN FOR BLOOD SUGAR 174.
[2017-03-20 16:00] VITALS: BP 161/90
--- NOTE | 2017-03-20 16:00 | NUR ---
RN CLOSING NOTES (DISCHARGE) PATIENT DISCHARGED TO [facility] IN STABLE CONDITION. NO ACUTE DISTRESS. NO PAIN NOTED. DENIES CP OR SOB. VS BASELINE OF PATIENT. ALL NEEDS MET. ALL MEDS GIVEN. PATIENT VERBALIZED UNDERSTANDING OF DISCHARGE. PATIENT TO CONTINUE IV ANTIBIOTICS FOR 4 WEEKS. REPORT GIVEN TO DOE PATEL AT [facility]. PATIENT TO RETURN IN THE EVENT OF AN EMERGENCY. ALL DISCHARGE TEACHING COMPLETE. ALL EXITCARE EDUCATION GIVEN. PAPERWORK SIGNED AND GIVEN TO PATIENT AND PLACED IN CHART.
== END 2017-03-20 16:15 | DRG 344 ==
LOC: ER 16:00 → TELE 20:18 → MED 03-15 17:06
PROVIDERS: ADMIT Nurse Practitioner Acute Care; ATTEND Nurse Practitioner Acute Care
PROC: 0JBQ0ZZ Excision of Right Foot Subcutaneous Tissue and Fascia, Open Approach (ICD-10-PCS; principal; 2017-03-15)
PROC: 05H533Z Insertion of Infusion Device into Right Subclavian Vein, Percutaneous Approach (ICD-10-PCS; 2017-03-19)
DX: E11.69 Type 2 diabetes mellitus with other specified complication (principal); M86.671 Other chronic osteomyelitis, right ankle and foot; N17.0 Acute kidney failure with tubular necrosis; E11.621 Type 2 diabetes mellitus with foot ulcer; I13.0 Hypertensive heart and chronic kidney disease with heart failure and stage 1 through stage 4 chronic kidney disease, or unspecified chronic kidney disease; E11.52 Type 2 diabetes mellitus with diabetic peripheral angiopathy with gangrene; E11.22 Type 2 diabetes mellitus with diabetic chronic kidney disease; I50.9 Heart failure, unspecified; E11.42 Type 2 diabetes mellitus with diabetic polyneuropathy; N18.9 Chronic kidney disease, unspecified; D63.8 Anemia in other chronic diseases classified elsewhere; E78.5 Hyperlipidemia, unspecified; I25.10 Atherosclerotic heart disease of native coronary artery without angina pectoris; E87.5 Hyperkalemia; I25.2 Old myocardial infarction; K21.9 Gastro-esophageal reflux disease without esophagitis; Z79.84 Long term (current) use of oral hypoglycemic drugs; Z86.73 Personal history of transient ischemic attack (TIA), and cerebral infarction without residual deficits; Z95.1 Presence of aortocoronary bypass graft; Z89.412 Acquired absence of left great toe; L97.518 Non-pressure chronic ulcer of other part of right foot with other specified severity; E11.65 Type 2 diabetes mellitus with hyperglycemia; L97.528 Non-pressure chronic ulcer of other part of left foot with other specified severity
CPT/HCPCS: 36415; 71010-TC; 73630-TC; 76770-TC; 80048-TC; 80053-TC; 80061-TC; 80202-TC; 82962-TC; 83735-TC; 84100-TC; 84443-TC; 85025-TC; 85730-TC; 87040-TC; 87070-TC; 87081-TC; 87186-TC; A4216; A4606; A6402; A6403; J0692; J1170; J1815; J2185; J2543; J3370; J7050; J7060; Z7610